=== PATIENT | male | born 1935 | race Caucasian/White ===

== ENCOUNTER 2019-07-17 08:41 | Outpatient (CLI) | payer MEDICARE, SELFPAY ==
[2019-07-17 09:08] LABS: Add Urine Microscopic? NO; Appearance Urine Clear (Clear); Bilirubin Urine Negative (Negative); Blood Urine Negative (Negative); Color Urine Yellow (Yellow); Glucose Urine UA Negative (Negative); Ketones Urine Negative (Negative); Leukocyte Esterase Ur Negative (Negative); Nitrate Urine Negative (Negative); Protein Urine Negative (Negative); Specific Grav Ur >= 1.030 (1.010-1.020); Urobilinogen Urine 0.2 mg/dL (0.2-1.0); pH Urine 5.5 (5.0-8.0)
[2019-07-17 09:10] LABS: Basophils Absolute Auto 0.05 K/mm3 (0.00-0.10); Basophils Percent Auto 0.9 % (0.0-1.0); Eosinophils Absolute Auto 0.44 K/mm3 (0.02-0.50); Eosinophils Percent Auto 7.7 % (1.0-6.0); Hematocrit 41.1 % (37.0-46.0); Hemoglobin 13.9 g/dL (12.4-15.3); Immature Granulocyte Absolute 0.02 K/mm3 (0.00-0.00); Immature Granulocyte Percent A 0.4 % (0.0-0.0); Immature Platelet Fraction Pct 1.4 % (1.0-7.0); Lymphocytes Absolute Auto 1.58 K/mm3 (1.10-4.50); Lymphocytes Percent Auto 27.7 % (18.0-42.0); Mean Corpuscular HGB Conc 33.8 g/dL (32.0-36.0); Mean Corpuscular Hemoglobin 33.2 pg (27.0-31.0); Mean Corpuscular Volume 98.1 fL (78.0-102.0); Mean Platelet Volume 9.8 fl (8.7-11.0); Monocytes Absolute Auto 0.52 K/mm3 (0.10-0.90); Monocytes Percent Auto 9.1 % (2.0-11.0); Neutrophils Absolute Auto 3.1 K/mm3 (1.7-7.2); Neutrophils Percent Auto 54.2 % (50.0-70.0); Platelet Count Result 268 K/mm3 (150-420); Red Blood Count 4.19 M/mm3 (4.70-6.10); Red Cell Distribution Width 13.1 % (11.6-14.4); White Blood Count 5.7 K/mm3 (4.8-10.8)
[2019-07-17 10:02] LABS: Alanine Aminotransferase 29 U/L (16-63); Albumin Level 3.7 g/dL (3.4-5.0); Alkaline Phosphatase 101 U/L (46-116); Anion Gap 12.9 mmol/L (7-16); Aspartate Amino Transferase 20 U/L (15-37); Bilirubin,Total 0.4 mg/dL (0.00-1.00); Blood Urea Nitrogen 25 mg/dL (7-18); Carbon Dioxide 28 mmol/L (21-32); Chloride 107 mmol/L (98-108); Cholesterol 176 mg/dL (0-200); Estimated Glomerular Filt Rate > 60; Ferritin 85 ng/mL (26-388); Free T4 Free Thyroxine 1.09 ng/dL (0.76-1.46); Glucose 100 mg/dL (70-99); HDL Direct 28 mg/dL (40-60); Iron 93 ug/dL (65-175); LDL Cholesterol Calculated 115 mg/dL (<130); Osmolality Calculated 302 mOsm/kg (285-295); Percent Iron Saturation 34 % (12-57); Potassium 3.9 mmol/L (3.5-5.1); Sodium 144 mmol/L (136-145); Thyroid Stimulating Hormone 1.25 uIU/mL (0.36-3.74); Total Protein 6.4 g/dL (6.4-8.2); Triglycerides 165 mg/dL (0-150); Uric Acid 6.1 mg/dL (3.5-7.2)
== END 2019-07-17 08:42 | disposition home or self-care (01) ==
LOC: CHSLAB 08:44
PROVIDERS: PCP Internal Medicine; Visit Provider Internal Medicine
DX: E79.0 Hyperuricemia without signs of inflammatory arthritis and tophaceous disease (principal); R73.01 Impaired fasting glucose; I10 Essential (primary) hypertension; E78.2 Mixed hyperlipidemia; E03.4 Atrophy of thyroid (acquired); C61 Malignant neoplasm of prostate; D63.8 Anemia in other chronic diseases classified elsewhere
CPT/HCPCS: 36415; 80053; 80061; 81003; 82728; 83540; 83550; 84439; 84443; 84550; 85025; 85055

== ENCOUNTER 2019-11-21 08:29 | Outpatient (CLI) | payer MEDICARE, SELFPAY ==
--- NOTE | ~2019-11-21 | CT_ITS ---
EXAMINATION: CT abdomen wo/w con DATE: 11/21/2019 09:19 INDICATION: Left renal mass TECHNIQUE: Computed tomography (CT) of the abdomen was performed without and with 100 mL Omnipaque-35 0 intravenous contrast. Automated exposure control and iterative reconstruction technique were employ ed. The dose-length product was 597.37 mGy-cm. COMPARISON: 04/14/2019 FINDINGS: Mild bibasilar atelectasis. Heart size is normal. Atherosclerotic coronary artery calcifications. No pericardial or pleural effusion. Focal hepatic steatosis along the ligamentum teres. Gallbladder, spl een, pancreas and bilateral adrenal glands are normal. Visualized portions of the bowels are unremark able. No pathologically enlarged abdominal lymphadenopathy. There is calcified atherosclerosis of the aorta and many of the other arteries. Severe lumbar and moderate lower thoracic spondylosis. Chronic scarring in the subcutaneous fat at the anterior abdominal wall on either side of the umbilicus. There are couple simple appearing cysts in the right kidney the larger measuring 3.6 similar. Unchang ed thin calcified septation extending across a bilobed 3.7 cm complex left renal cyst without appreci able enhancement cyst with a Bosniak 2 cyst. No interval change in a 9 mm enhancing nodule at the upp er pole of the right kidney. Cortical defect with reticular scarring at the posterior medial mid left kidney consistent with prior partial nephrectomy or ablation of a reported renal mass. No evident en hancing nodular soft tissue component to suggest recurrent disease. There are couple 4 mm and 2 mm lo w-density lesions evident in the left kidney on the postcontrast images is likely renal cysts but too small to really characterize. 2 mm nonobstructing stones are seen at the upper pole of the right kid yany and lower pole of the left kidney. No hydronephrosis. IMPRESSION: 1. Focal parenchymal defect with scarring at the mid left kidney consistent with prior partial nephre ctomy or ablation with no evident recurrent disease. 2. Unchanged 9 mm enhancing nodule at the upper pole of the right kidney concerning for renal cell ca rcinoma. 3. Nonobstructing bilateral nephrolithiasis. Reviewed, dictated and finalized at location A. IMPRESSION: 1. Focal parenchymal defect with scarring at the mid left kidney consistent wit h prior partial nephrectomy or ablation with no evident recurrent disease. 2. Unchanged 9 mm enhancing nodule at the upper pole of the right kidney concer tonya for renal cell carcinoma. 3. Nonobstructing bilateral nephrolithiasis.
[2019-11-21 09:11] LABS: Estimated Glomerular Filt Rate > 60
== END 2019-11-21 08:30 | disposition home or self-care (01) ==
PROVIDERS: PCP Internal Medicine
DX: N28.89 Other specified disorders of kidney and ureter (principal); N20.0 Calculus of kidney
CPT/HCPCS: 36415; 74170; Q9967

== ENCOUNTER 2020-01-18 08:15 | Outpatient (CLI) | payer MEDICARE, SELFPAY ==
[2020-01-18 08:41] LABS: Add Urine Microscopic? YES; Appearance Urine Clear (Clear); Bilirubin Urine Negative (Negative); Blood Urine Negative (Negative); Color Urine Yellow (Yellow); Glucose Urine UA Negative (Negative); Ketones Urine Negative (Negative); Leukocyte Esterase Ur Trace (Negative); Nitrate Urine Negative (Negative); Protein Urine Negative (Negative); Specific Grav Ur >= 1.030 (1.010-1.020); Urobilinogen Urine 0.2 mg/dL (0.2-1.0)
[2020-01-18 08:46] LABS: Bacteria Urine Trace /hpf; RBC Urine 0-2 /hpf (0-2); Squamous Epithelial Cell Urine Few /hpf (Few)
[2020-01-18 08:55] LABS: Hemoglobin A1C 5.1 % (<5.7)
[2020-01-18 09:46] LABS: Alanine Aminotransferase 59 U/L (16-63); Albumin Level 3.6 g/dL (3.4-5.0); Alkaline Phosphatase 92 U/L (46-116); Anion Gap 9 mmol/L (8-16); Aspartate Amino Transferase 22 U/L (15-37); Bilirubin,Total 0.3 mg/dL (0.00-1.00); Blood Urea Nitrogen 33 mg/dL (7-18); Calcium 8.6 mg/dL (8.5-10.1); Carbon Dioxide 29 mmol/L (21-32); Chloride 107 mmol/L (98-108); Cholesterol 191 mg/dL (0-200); Estimated Glomerular Filt Rate > 60; Glucose 88 mg/dL (70-99); HDL Direct 31 mg/dL (40-60); LDL Cholesterol Calculated 137 mg/dL (<130); Osmolality Calculated 306 mOsm/kg (285-295); Potassium 3.7 mmol/L (3.5-5.1); Sodium 145 mmol/L (136-145); Total Protein 6.3 g/dL (6.4-8.2); Triglycerides 117 mg/dL (0-150)
== END 2020-01-18 08:16 | disposition home or self-care (01) ==
LOC: CHSLAB 08:16
PROVIDERS: PCP Internal Medicine; Visit Provider Internal Medicine
DX: E78.2 Mixed hyperlipidemia (principal); I10 Essential (primary) hypertension; R73.01 Impaired fasting glucose
CPT/HCPCS: 36415; 80053; 80061; 81001; 83036

== ENCOUNTER 2020-05-31 08:38 | Outpatient (CLI) | payer MEDICARE, SELFPAY ==
--- NOTE | ~2020-05-31 | CT_ITS ---
EXAMINATION: CT abdomen wo/w con DATE: 05/31/2020 09:38 INDICATION: Malignant left neoplasm restaging TECHNIQUE: Computed tomography (CT) of the abdomen was performed without and subsequently with 100 cc Omnipaque 350 intravenous contrast. Automated exposure control and iterative reconstruction techniqu e were employed. Exam dose: 580.25 mGy-cm total exam DLP. COMPARISON: 11/21/2019, 04/14/2019, 08/31/2018 CT abdomen examinations FINDINGS: Stable bilateral renal cysts. No interval new or enlarging renal mass lesion. Stable postablation changes of the left kidney at site of former renal mass. No interval change at th is site. Diffuse hepatic steatosis. No hepatic space-occupying mass lesion. The gallbladder is present and slime ears unremarkable. No pericholecystic fluid or fat stranding. No bile duct or pancreatic duct dilatat ion. No pancreatic mass lesion or calcification. Normal splenic size. Normal morphology of the adrenal glands. Atherosclerotic calcification of the abdominal aorta; no abdominal aortic aneurysm. No intraperitonea l or retroperitoneal mass lesion or adenopathy or ascites. No bowel obstruction, bowel wall thickening, pneumatosis or intraperitoneal free air. Included skeletal structures are unremarkable other than degenerative change of the thoracic and part icularly lumbar spine. IMPRESSION: Stable postablation changes at the medial mid left kidney and stable bilateral renal cys ts; no significant change since 11/21/2019 Reviewed, dictated and finalized at [facility]. Reviewed, dictated and finalized at location B. GER DRUG IMPRESSION: Stable postablation changes at the medial mid left kidney and stab le bilateral renal cysts; no significant change since 11/21/2019
[2020-05-31 09:29] LABS: Estimated Glomerular Filt Rate > 60
== END 2020-05-31 08:39 | disposition home or self-care (01) ==
PROVIDERS: PCP Internal Medicine; Visit Provider Urology
DX: C64.2 Malignant neoplasm of left kidney, except renal pelvis (principal)
CPT/HCPCS: 74170; Q9967

== ENCOUNTER 2020-07-29 08:30 | Outpatient (CLI) | payer MEDICARE, SELFPAY ==
[2020-07-29 08:45] LABS: Basophils Absolute Auto 0.05 K/mm3 (0.00-0.10); Basophils Percent Auto 0.9 % (0.0-1.0); Eosinophils Absolute Auto 0.21 K/mm3 (0.02-0.50); Eosinophils Percent Auto 3.7 % (1.0-6.0); Hemoglobin 13.2 g/dL (12.4-15.3); Immature Granulocyte Absolute 0.01 K/mm3 (0.00-0.00); Immature Granulocyte Percent A 0.2 % (0.0-0.0); Lymphocytes Absolute Auto 1.76 K/mm3 (1.10-4.50); Lymphocytes Percent Auto 31.1 % (18.0-42.0); Mean Corpuscular HGB Conc 33.8 g/dL (32.0-36.0); Mean Corpuscular Hemoglobin 33.1 pg (27.0-31.0); Mean Corpuscular Volume 97.7 fL (78.0-102.0); Mean Platelet Volume 9.4 fl (8.7-11.0); Monocytes Absolute Auto 0.59 K/mm3 (0.10-0.90); Monocytes Percent Auto 10.4 % (2.0-11.0); Neutrophils Percent Auto 53.7 % (50.0-70.0); Platelet Count Result 232 K/mm3 (150-420); Red Blood Count 3.99 M/mm3 (4.70-6.10); Red Cell Distribution Width 12.6 % (11.6-14.4); White Blood Count 5.7 K/mm3 (4.8-10.8)
[2020-07-29 08:57] LABS: Add Urine Microscopic? NO; Appearance Urine Clear (Clear); Bilirubin Urine Negative (Negative); Blood Urine Negative (Negative); Color Urine Yellow (Yellow); Glucose Urine UA Negative (Negative); Ketones Urine Negative (Negative); Leukocyte Esterase Ur Negative (Negative); Nitrate Urine Negative (Negative); Protein Urine Negative (Negative); Specific Grav Ur >= 1.030 (1.010-1.020); Urobilinogen Urine 0.2 mg/dL (0.2-1.0); pH Urine 5.5 (5.0-8.0)
[2020-07-29 09:41] LABS: Hemoglobin A1C 5.6 % (<5.7)
[2020-07-29 10:04] LABS: Alanine Aminotransferase 51 U/L (16-63); Albumin Level 3.6 g/dL (3.4-5.0); Alkaline Phosphatase 102 U/L (46-116); Anion Gap 10 mmol/L (8-16); Aspartate Amino Transferase 27 U/L (15-37); Bilirubin,Total 0.6 mg/dL (0.00-1.00); Blood Urea Nitrogen 27 mg/dL (7-18); Calcium 8.9 mg/dL (8.5-10.1); Carbon Dioxide 27 mmol/L (21-32); Chloride 106 mmol/L (98-108); Cholesterol 187 mg/dL (0-200); Creatine Kinase 89 U/L (39-308); Estimated Glomerular Filt Rate 60; Glucose 105 mg/dL (70-99); HDL Direct 24 mg/dL (40-60); LDL Cholesterol Calculated 123 mg/dL (<130); Osmolality Calculated 301 mOsm/kg (285-295); Sodium 143 mmol/L (136-145); Total Protein 6.3 g/dL (6.4-8.2); Triglycerides 198 mg/dL (0-150); Uric Acid 6.3 mg/dL (3.5-7.2)
== END 2020-07-29 08:31 | disposition home or self-care (01) ==
LOC: CHSLAB 08:32
PROVIDERS: PCP Internal Medicine; Visit Provider Internal Medicine
DX: E78.2 Mixed hyperlipidemia (principal); I10 Essential (primary) hypertension; R73.01 Impaired fasting glucose; E79.0 Hyperuricemia without signs of inflammatory arthritis and tophaceous disease; N30.00 Acute cystitis without hematuria
CPT/HCPCS: 36415; 80053; 80061; 81003; 82550; 83036; 84550; 85025; 87077; 87086; 87088; 87186

== ENCOUNTER 2021-01-16 10:41 | Outpatient (CLI) | payer MEDICARE, SELFPAY ==
[2021-01-16 12:02] LABS: SARS-CoV-2 RNA PCR Negative (Negative)
== END 2021-01-16 10:42 | disposition home or self-care (01) ==
LOC: CHSLAB 10:43
PROVIDERS: PCP Internal Medicine; Visit Provider Internal Medicine
DX: J06.9 Acute upper respiratory infection, unspecified (principal); Z20.822 Contact with and (suspected) exposure to COVID-19
CPT/HCPCS: C9803; U0003; U0005

== ENCOUNTER 2021-02-11 09:04 | Outpatient (CLI) | payer MEDICARE, SELFPAY ==
[2021-02-11 09:23] LABS: Add Urine Microscopic? NO; Appearance Urine Clear (Clear); Bilirubin Urine Negative (Negative); Blood Urine Negative (Negative); Color Urine Yellow (Yellow); Glucose Urine UA Negative (Negative); Ketones Urine Negative (Negative); Leukocyte Esterase Ur Negative (Negative); Nitrate Urine Negative (Negative); Protein Urine Negative (Negative); Specific Grav Ur >= 1.030 (1.010-1.020); Urobilinogen Urine 0.2 mg/dL (0.2-1.0); pH Urine 5.5 (5.0-8.0)
[2021-02-11 09:24] LABS: Basophils Absolute Auto 0.04 K/mm3 (0.00-0.10); Basophils Percent Auto 0.8 % (0.0-1.0); Eosinophils Absolute Auto 0.28 K/mm3 (0.02-0.50); Eosinophils Percent Auto 5.6 % (1.0-6.0); Hematocrit 40.7 % (37.0-46.0); Hemoglobin 14.1 g/dL (12.4-15.3); Immature Granulocyte Absolute 0.01 K/mm3 (0.00-0.00); Immature Granulocyte Percent A 0.2 % (0.0-0.0); Lymphocytes Absolute Auto 1.51 K/mm3 (1.10-4.50); Lymphocytes Percent Auto 30.1 % (18.0-42.0); Mean Corpuscular HGB Conc 34.6 g/dL (32.0-36.0); Mean Corpuscular Hemoglobin 34.3 pg (27.0-31.0); Monocytes Absolute Auto 0.44 K/mm3 (0.10-0.90); Monocytes Percent Auto 8.8 % (2.0-11.0); Neutrophils Absolute Auto 2.7 K/mm3 (1.7-7.2); Neutrophils Percent Auto 54.5 % (50.0-70.0); Platelet Count Result 280 K/mm3 (150-420); Red Blood Count 4.11 M/mm3 (4.70-6.10); Red Cell Distribution Width 12.4 % (11.6-14.4)
[2021-02-11 09:35] LABS: Hemoglobin A1C 5.7 % (<5.7)
[2021-02-11 09:59] LABS: Alanine Aminotransferase 55 U/L (16-63); Albumin Level 3.8 g/dL (3.4-5.0); Alkaline Phosphatase 115 U/L (46-116); Anion Gap 10 mmol/L (8-16); Aspartate Amino Transferase 30 U/L (15-37); Bilirubin,Total 0.3 mg/dL (0.00-1.00); Blood Urea Nitrogen 21 mg/dL (7-18); Calcium 8.9 mg/dL (8.5-10.1); Carbon Dioxide 29 mmol/L (21-32); Chloride 106 mmol/L (98-108); Cholesterol 185 mg/dL (0-200); Estimated Glomerular Filt Rate > 60; Glucose 102 mg/dL (70-99); HDL Direct 26 mg/dL (40-60); LDL Cholesterol Calculated 122 mg/dL (<130); Osmolality Calculated 303 mOsm/kg (285-295); Potassium 4.2 mmol/L (3.5-5.1); Sodium 145 mmol/L (136-145); Total Protein 6.9 g/dL (6.4-8.2); Triglycerides 185 mg/dL (0-150)
== END 2021-02-11 09:05 | disposition home or self-care (01) ==
LOC: CHSLAB 09:05
PROVIDERS: PCP Internal Medicine; Visit Provider Internal Medicine
DX: R73.01 Impaired fasting glucose (principal); E78.2 Mixed hyperlipidemia; I10 Essential (primary) hypertension; C61 Malignant neoplasm of prostate
CPT/HCPCS: 36415; 80053; 80061; 81003; 83036; 85025

== ENCOUNTER 2021-06-13 08:35 | Outpatient (CLI) | payer MEDICARE, SELFPAY ==
--- NOTE | ~2021-06-13 | CT_ITS ---
EXAMINATION: CT abdomen wo/w con DATE: 06/13/2021 09:14 INDICATION: Malignant neoplasm of the left kidney TECHNIQUE: Computed tomography (CT) of the abdomen was performed without and with 100 cc Omnipaque 35 0 intravenous contrast. The dose-length product was 683.81 mGy-cm. Automated exposure control and ite rative reconstruction technique were employed. COMPARISON: CT dated 05/31/2020. FINDINGS: Lung bases are unremarkable. No significant pleural or pericardial effusion. There are stab le radioablation changes medial aspect of the left kidney. There are stable bilateral renal cysts. Ga llbladder is present. Fatty infiltration of the liver. The spleen, pancreas, adrenal glands are unremarkable. There is athe rosclerosis of the aorta and coronary arteries. No free air or free fluid. There are changes of ventr al abdominal wall hernia repair. No free air or free fluid. Stable hypodensity upper pole of the righ t kidney. IMPRESSION: 1. Stable changes medial aspect of the left kidney, likely related to previous partial nephrectomy or ablation. No evidence for recurrent malignancy. Reviewed, dictated and finalized at location A. ENT SUPPORT SERVICES DIRECTOR
[2021-06-13 10:03] LABS: Estimated Glomerular Filt Rate > 60
== END 2021-06-13 08:36 | disposition home or self-care (01) ==
PROVIDERS: PCP Internal Medicine; Visit Provider Urology
DX: C64.2 Malignant neoplasm of left kidney, except renal pelvis (principal)
CPT/HCPCS: 74170; Q9967

== ENCOUNTER 2021-09-02 09:18 | Outpatient (CLI) | payer MEDICARE, SELFPAY ==
[2021-09-02 10:01] LABS: Basophils Absolute Auto 0.04 K/mm3 (0.00-0.10); Basophils Percent Auto 0.8 % (0.0-1.0); Eosinophils Percent Auto 4.1 % (1.0-6.0); Hematocrit 37.7 % (37.0-46.0); Hemoglobin 12.8 g/dL (12.4-15.3); Immature Granulocyte Absolute 0.01 K/mm3 (0.00-0.00); Immature Granulocyte Percent A 0.2 % (0.0-0.0); Lymphocytes Absolute Auto 1.62 K/mm3 (1.10-4.50); Lymphocytes Percent Auto 32.9 % (18.0-42.0); Mean Corpuscular Hemoglobin 33.9 pg (27.0-31.0); Mean Corpuscular Volume 99.7 fL (78.0-102.0); Mean Platelet Volume 9.9 fl (8.7-11.0); Monocytes Absolute Auto 0.41 K/mm3 (0.10-0.90); Monocytes Percent Auto 8.3 % (2.0-11.0); Neutrophils Absolute Auto 2.7 K/mm3 (1.7-7.2); Neutrophils Percent Auto 53.7 % (50.0-70.0); Platelet Count Result 293 K/mm3 (150-420); Red Blood Count 3.78 M/mm3 (4.70-6.10); Red Cell Distribution Width 12.7 % (11.6-14.4); White Blood Count 4.9 K/mm3 (4.8-10.8)
[2021-09-02 10:11] LABS: Add Urine Microscopic? NO; Appearance Urine Clear (Clear); Bilirubin Urine Negative (Negative); Blood Urine Negative (Negative); Color Urine Yellow (Yellow); Glucose Urine UA Negative (Negative); Ketones Urine Negative (Negative); Leukocyte Esterase Ur Negative (Negative); Nitrate Urine Negative (Negative); Protein Urine Negative (Negative); Specific Grav Ur >= 1.030 (1.010-1.020); Urobilinogen Urine 0.2 mg/dL (0.2-1.0); pH Urine 5.5 (5.0-8.0)
[2021-09-02 10:20] LABS: Hemoglobin A1C 5.9 % (<5.7)
[2021-09-02 10:38] LABS: Alanine Aminotransferase 26 U/L (16-63); Albumin Level 3.5 g/dL (3.4-5.0); Alkaline Phosphatase 119 U/L (46-116); Anion Gap 8 mmol/L (8-16); Aspartate Amino Transferase 22 U/L (15-37); Bilirubin,Total 0.4 mg/dL (0.00-1.00); Blood Urea Nitrogen 22 mg/dL (7-18); Calcium 8.8 mg/dL (8.5-10.1); Carbon Dioxide 28 mmol/L (21-32); Chloride 107 mmol/L (98-108); Cholesterol 167 mg/dL (0-200); Creatine Kinase 73 U/L (39-308); Estimated Glomerular Filt Rate > 60; Glucose 97 mg/dL (70-99); HDL Direct 26 mg/dL (40-60); LDL Cholesterol Calculated 112 mg/dL (<130); Osmolality Calculated 299 mOsm/kg (285-295); Potassium 4.2 mmol/L (3.5-5.1); Sodium 143 mmol/L (136-145); Total Protein 6.5 g/dL (6.4-8.2); Triglycerides 146 mg/dL (0-150)
== END 2021-09-02 09:19 | disposition home or self-care (01) ==
LOC: CHSLAB 09:20
PROVIDERS: PCP Internal Medicine; Visit Provider Internal Medicine
DX: I10 Essential (primary) hypertension (principal); E78.2 Mixed hyperlipidemia; R73.01 Impaired fasting glucose; C61 Malignant neoplasm of prostate
CPT/HCPCS: 36415; 80053; 80061; 81003; 82550; 83036; 85025

== ENCOUNTER 2021-09-19 11:52 | Emergency (ER) | payer MEDICARE, SELFPAY ==
--- NOTE | ~2021-09-19 | CT_ITS ---
EXAMINATION: CT abdomen pelvis wo con DATE: 09/19/2021 13:20 INDICATION: Gross hematuria. TECHNIQUE: Computed tomography (CT) of the abdomen and pelvis was performed without intravenous contr ast. Automated exposure control and iterative reconstruction technique were employed. The dose-length product was 212.89 mGy-cm. COMPARISON: CT abdomen 06/13/2021, CT abdomen and pelvis 11/24/17 FINDINGS: The visualized portions of the lung bases demonstrate mild atelectasis. There is mild bronc hiectasis bilaterally. There is a pneumatocele in left lower lobe. No pleural effusion. No heart size is normal. There are coronary artery calcifications. No pericardial effusion. There is diffuse hepat ic steatosis. The gallbladder, spleen, pancreas, and adrenal glands are normal. There are cysts in ri ght kidney measuring up to 3.8 cm. One of the cysts demonstrate a chronic thick calcification of a se ptum. There is a 3.9 cm cyst in left kidney. There are chronic changes of either ablation or partial nephrectomy at posterior medial aspect of left kidney. There is a 3 mm stone in left kidney. There ar e brachytherapy seeds in the prostate. There is diverticulosis of the colon without evidence of diver ticulitis. There are no dilated loops of bowel. The appendix is normal. There are no pathologically e nlarged lymph nodes. There is no free intraperitoneal fluid. There is lumbar levoscoliosis and severe spondylosis. There is a chronic cord lesion in left superior pubic ramus, and benign. IMPRESSION: 1. No specific etiology for hematuria. Reviewed, dictated and finalized at location A.
[2021-09-19 12:00] VITALS: BP 157/87; PULSE 51; RESP 20; TEMP 36.6; O2SAT 96
--- NOTE | 2021-09-19 12:45 | ED.GENADULT ---
HPI - General Adult General Chief complaint: Urogenital-Male Stated complaint: diarrhea, blood in urine History of Present Illness HPI narrative: Fritz is a very pleasant 85M with a PMH of prostate cancer s/p treatment and HTN that came to the ED with a few episodes of diarrhea and gross hematuria. It started this morning and he has had a few episodes. There is no dysuria, fevers, chills, N/V CP or SOB. He has had nephrolithiasis in the past. Related Data Allergies Allergy/AdvReac Type Severity Reaction Status Date / Time No Known Allergies Allergy Unverified 07/11/18 11:46 Review of Systems Constitutional: Constitutional: Reports no additional constitutional complaints Eyes: Eyes: Reports no additional eye complaints ENT: Reports system reviewed and no additional complaints, except as documented Cardiovascular: Cardiovascular: Reports no additional cardiovascular complaints Respiratory: Respiratory: Reports no additional respiratory complaints Gastrointestinal: Gastrointestinal: Reports no additional gastrointestinal complaints Genitourinary: Genitourinary: Reports no additional male genitourinary complaints Musculoskeletal: Musculoskeletal: Reports no additional musculoskeletal complaints Integumentary/Breasts: Skin/Breast: Reports system reviewed and no additional complaints, except as docu Neurologic: Reports system reviewed and no additional complaints, except as documented Psychiatric: Psychiatric: Reports no additional psychiatric complaints Endocrine: Endocrine: Reports no additional endocrine complaints Hematologic/Lymphatic: Hematologic/Lymphatic: Reports no additional hematologic/lymphatic complaints Allergic/Immunologic: Allergic/Immunologic: Reports no additional allergic/immunologic complaints [facility] Social History Social History Smoking status: Never smoker Exam Const: General: healthy appearing, no acute distress and alert HENMT: Head: normal to inspection Ears: external ears normal General nose exam: Normal external nose present Face and sinus: normal facial exam Eyes: Conjunctivae: conjunctivae normal Pupils: Equal, round and reactive pupils present EOM: EOMs intact bilaterally Neck: Neck: normal visual inspection Chest: Chest palpation & inspection: normal inspection of the chest Resp: Effort & Inspection: normal respiratory effort Auscultation: clear to auscultation bilaterally Cardio: Rate: regular rate GI: Other: NO TTP, no guarding, normal bowel sounds : Other: No CVA tenderness, no suprapubic tenderness Skin: General skin exam: normal color Neuro: General: patient oriented x3 and moves all extremities Speech: normal speech Extrem: General: normal to inspection Psych: Mental Status: mental status grossly normal Affect: normal affect Course Course Emergency Course: Ordered labs and CT EXAMINATION: CT abdomen pelvis wo con DATE: 09/19/2021 13:20 INDICATION: Gross hematuria. TECHNIQUE: Computed tomography (CT) of the abdomen and pelvis was performed without intravenous contrast. Automated exposure control and iterative reconstruction technique were employed. The dose-length product was 212.89 mGy-cm. COMPARISON: CT abdomen 06/13/2021, CT abdomen and pelvis 11/24/17 FINDINGS: The visualized portions of the lung bases demonstrate mild atelectasis. There is mild bronchiectasis bilaterally. There is a pneumatocele in left lower lobe. No pleural effusion. No heart size is normal. There are coronary artery calcifications. No pericardial effusion. There is diffuse hepatic steatosis. The gallbladder, spleen, pancreas, and adrenal glands are normal. There are cysts in right kidney measuring up to 3.8 cm. One of the cysts demonstrate a chronic thick calcification of a septum. There is a 3.9 cm cyst in left kidney. There are chronic changes of either ablation or partial nephrectomy at posterior medial aspect of le
[2021-09-19 13:00] LABS: Add Urine Microscopic? YES; Appearance Urine Turbid (Clear); Basophils Absolute Auto 0.03 K/mm3 (0.00-0.10); Basophils Percent Auto 0.4 % (0.0-1.0); Bilirubin Urine Negative (Negative); Blood Urine 3+ (Negative); Color Urine Brown (Yellow); Eosinophils Absolute Auto 0.23 K/mm3 (0.02-0.50); Eosinophils Percent Auto 2.8 % (1.0-6.0); Glucose Urine UA Trace (Negative); Hemoglobin 12.8 g/dL (12.4-15.3); Immature Granulocyte Absolute 0.02 K/mm3 (0.00-0.00); Immature Granulocyte Percent A 0.2 % (0.0-0.0); Ketones Urine Trace (Negative); Leukocyte Esterase Ur 1+ (Negative); Lymphocytes Absolute Auto 1.26 K/mm3 (1.10-4.50); Lymphocytes Percent Auto 15.1 % (18.0-42.0); Mean Corpuscular HGB Conc 33.7 g/dL (32.0-36.0); Mean Corpuscular Hemoglobin 33.3 pg (27.0-31.0); Mean Platelet Volume 9.7 fl (8.7-11.0); Monocytes Absolute Auto 0.75 K/mm3 (0.10-0.90); Neutrophils Absolute Auto 6.1 K/mm3 (1.7-7.2); Neutrophils Percent Auto 72.5 % (50.0-70.0); Nitrate Urine Positive (Negative); Platelet Count Result 233 K/mm3 (150-420); Protein Urine 2+ (Negative); Red Blood Count 3.84 M/mm3 (4.70-6.10); Red Cell Distribution Width 12.8 % (11.6-14.4); Specific Grav Ur 1.025 (1.010-1.020); Urobilinogen Urine 0.2 mg/dL (0.2-1.0); White Blood Count 8.4 K/mm3 (4.8-10.8)
[2021-09-19 13:03] LABS: RBC Urine >75 /hpf (0-2); Squamous Epithelial Cell Urine Rare /hpf (Few)
[2021-09-19 13:04] LABS: Bacteria Urine 1+ /hpf
[2021-09-19 13:15] LABS: Alanine Aminotransferase 36 U/L (16-63); Albumin Level 3.5 g/dL (3.4-5.0); Alkaline Phosphatase 115 U/L (46-116); Anion Gap 7 mmol/L (8-16); Aspartate Amino Transferase 24 U/L (15-37); Bilirubin,Total 0.4 mg/dL (0.00-1.00); Blood Urea Nitrogen 22 mg/dL (7-18); CRP < 0.5 mg/dL (0.0-0.9); Calcium 8.8 mg/dL (8.5-10.1); Carbon Dioxide 28 mmol/L (21-32); Chloride 108 mmol/L (98-108); Estimated Glomerular Filt Rate > 60; Glucose 108 mg/dL (70-99); Osmolality Calculated 300 mOsm/kg (285-295); Potassium 3.6 mmol/L (3.5-5.1); Sodium 143 mmol/L (136-145); Total Protein 6.8 g/dL (6.4-8.2)
[2021-09-19] MEDS: cefTRIAXone 1 GM, LIDOCAINE HCL 1% LOCAL INJ 2.1 ML IM (14:15)
[2021-09-19 14:30] VITALS: BP 157/87; PULSE 51; RESP 20; TEMP 36.9; O2SAT 97
== END 2021-09-19 14:40 | disposition home or self-care (01) ==
PROVIDERS: Emergency Provider Family Medicine; PCP Internal Medicine
DX: N39.0 Urinary tract infection, site not specified (principal); Z85.46 Personal history of malignant neoplasm of prostate; I10 Essential (primary) hypertension
CPT/HCPCS: 36415; 74176; 80053; 81001; 85025; 86140; 86850; 86900; 86901; 96372; 99284; J0696

== ENCOUNTER 2021-11-01 09:29 | Outpatient (CLI) | payer MEDICARE, SELFPAY ==
[2021-11-01 09:43] LABS: Basophils Absolute Auto 0.04 K/mm3 (0.00-0.10); Basophils Percent Auto 0.7 % (0.0-1.0); Eosinophils Absolute Auto 0.21 K/mm3 (0.02-0.50); Eosinophils Percent Auto 3.8 % (1.0-6.0); Immature Granulocyte Absolute 0.01 K/mm3 (0.00-0.00); Immature Granulocyte Percent A 0.2 % (0.0-0.0); Lymphocytes Absolute Auto 1.83 K/mm3 (1.10-4.50); Lymphocytes Percent Auto 33.1 % (18.0-42.0); Mean Corpuscular HGB Conc 33.3 g/dL (32.0-36.0); Mean Platelet Volume 9.5 fl (8.7-11.0); Monocytes Absolute Auto 0.47 K/mm3 (0.10-0.90); Monocytes Percent Auto 8.5 % (2.0-11.0); Neutrophils Percent Auto 53.7 % (50.0-70.0); Platelet Count Result 239 K/mm3 (150-420); Red Blood Count 3.94 M/mm3 (4.70-6.10); Red Cell Distribution Width 12.7 % (11.6-14.4); White Blood Count 5.5 K/mm3 (4.8-10.8)
== END 2021-11-01 09:30 | disposition home or self-care (01) ==
LOC: CHSLAB 09:31
PROVIDERS: PCP Internal Medicine; Visit Provider Internal Medicine
DX: D64.0 Hereditary sideroblastic anemia (principal)
CPT/HCPCS: 36415; 85025

== ENCOUNTER 2022-01-12 16:31 | Emergency (ER) | payer MEDICARE, SELFPAY ==
[2022-01-12 16:45] VITALS: BP 142/82; PULSE 79; RESP 20; TEMP 36.1; O2SAT 98
--- NOTE | 2022-01-12 16:47 | ED.ABDPAIN ---
HPI - Abdominal Pain General Chief Complaint: Urogenital-Male Stated Complaint: trouble urinating Time Seen by Provider: 01/12/22 16:41 History of Present Illness HPI narrative: Pt says he has not been able to void since 0200 last night. Pt has some soreness to the tip of his penis but not sure if that is the problem. Pt takes meds for BPH. Pt denies nausea or vomiting. Related Data Home Medications Medication Instructions Recorded Confirmed lisinopril 40 mg tablet 40 mg DAILY 01/12/22 01/12/22 tamsulosin 0.4 mg capsule 0.4 mg PO DAILY 01/12/22 01/12/22 verapamil 240 mg tablet,extended 240 mg PO DAILY 01/12/22 01/12/22 release Allergies Allergy/AdvReac Type Severity Reaction Status Date / Time No Known Allergies Allergy Unverified 01/12/22 16:47 Review of Systems Review of Systems: All systems reviewed & are unremarkable except as noted in HPI and below [facility] Social History Social History Smoking status: Never smoker Exam Const: General: healthy appearing Nutritional Appearance: well nourished Orientation/consciousness: patient oriented x3 Limitations: no limitations Resp: Effort & Inspection: normal respiratory effort Auscultation: clear to auscultation bilaterally Cardio: Rate: regular rate Rhythm: regular rhythm GI: GI Palp: Yes Soft to palpation and Yes Tenderness to palpation present (GI) (mild suprpubic tenderness) Auscultation: normal bowel sounds : Male General Exam: Yes normal external exam Penis: Yes normal penis and Yes uncircumcised Scrotum: scrotum normal Testes: Testes normal Skin: General skin exam: normal color Rashes: no rashes Wounds: no wounds Neuro: General: patient oriented x3, moves all extremities and no meningeal signs Cranial nerves: Yes Nystagmus not present Speech: normal speech Extrem: General: normal to inspection and no clubbing, cyanosis or edema Psych: Mental Status: mental status grossly normal Affect: normal affect Attitude: cooperative Course Vital Signs Vital signs: Vital Signs Temperature 97 F L 01/12/22 16:45 Pulse Rate 79 01/12/22 16:45 Respiratory Rate 20 01/12/22 16:45 Blood Pressure 142/82 H 01/12/22 16:45 Pulse Oximetry 98 01/12/22 16:45 Oxygen Delivery Room Air 01/12/22 16:45 Temperature 97 F L 01/12/22 16:48 Pulse Rate 79 01/12/22 16:48 Respiratory Rate 20 01/12/22 16:48 Blood Pressure 142/82 H 01/12/22 16:48 Pulse Oximetry 98 01/12/22 16:48 Oxygen Delivery Room Air 01/12/22 16:48 MDM - Abdominal Pain Lab Data Labs: Lab Results 01/12/22 Range/Units 17:00 Urine Color Yellow (Yellow) Urine Appearance Clear (Clear) Urine pH 6.0 (5.0-8.0) Ur Specific Prosperity 1.025 H (1.010-1.020) Urine Protein Negative (Negative) Urine Glucose (UA) Negative (Negative) Urine Ketones Negative (Negative) Ur Blood (Man) Negative (Negative) Urine Nitrate Negative (Negative) Urine Bilirubin Negative (Negative) Urine Urobilinogen 0.2 (0.2-1.0) mg/dL Leukocyte Esterase Rfl Trace (Negative) CURRY/UL Urine RBC None seen (0-2) /hpf Urine WBC 4-6 H (0-3) /hpf Ur Squamous Epith Cells Rare (Few) /hpf Urine Bacteria Trace (None) /hpf Discharge Plan Discharge Clinical Impression: Urinary tract infection Patient Disposition: Home, Self-Care Condition: Improved Instructions: Antibiotic Form, Urinary Tract Infection in Men (ED) Prescriptions: New cefuroxime axetil 500 mg tablet 500 mg PO BID Qty: 10 0RF No Action tamsulosin 0.4 mg capsule 0.4 mg PO DAILY verapamil 240 mg tablet extended release 240 mg PO DAILY lisinopril 40 mg tablet 40 mg DAILY Follow-up/Referrals: Jeanmarie Romero MD [Primary Care Provider] -
[2022-01-12 16:48] VITALS: BP 142/82; PULSE 79; RESP 20; TEMP 36.1; O2SAT 98
[2022-01-12 17:22] LABS: Add Urine Microscopic? YES; Appearance Urine Clear (Clear); Bilirubin Urine Negative (Negative); Blood Urine Negative (Negative); Color Urine Yellow (Yellow); Glucose Urine UA Negative (Negative); Ketones Urine Negative (Negative); Leukocyte Esterase Ur Trace LEU/UL (Negative); Nitrate Urine Negative (Negative); Protein Urine Negative (Negative); Specific Grav Ur 1.025 (1.010-1.020); Urobilinogen Urine 0.2 mg/dL (0.2-1.0)
--- NOTE | 2022-01-12 17:26 | PC.NURSE ---
Pt was incontinent of a large amount of urine in his depends. Pt able to provide a small sample in urinal for UA. Pt reports pain has improved and stated to ERP that penis is no longer swollen or painful.
[2022-01-12 17:28] LABS: Bacteria Urine Trace /hpf; RBC Urine None seen /hpf (0-2); Squamous Epithelial Cell Urine Rare /hpf (Few)
--- NOTE | 2022-01-12 18:07 | PC.NURSE ---
Ceftin not stocked in ER pyxis. Anne on 2nd floor will pull medication from their pyxis. Pt updated about delays.
[2022-01-12] MEDS: CEFUROXIME AXETIL 250 MG TABLET 500 MG PO (18:12)
== END 2022-01-12 18:17 | disposition home or self-care (01) ==
PROVIDERS: Emergency Provider Emergency Medicine; PCP Internal Medicine
DX: N39.0 Urinary tract infection, site not specified (principal)
CPT/HCPCS: 81001; 99283; A9270

== ENCOUNTER 2022-06-05 08:08 | Outpatient (CLI) | payer MEDICARE, SELFPAY ==
--- NOTE | ~2022-06-05 | CT_ITS ---
EXAMINATION: CT abdomen wo/w con DATE: 06/05/2022 08:49 INDICATION: Malignant neoplasm of the left kidney except renal pelvis. TECHNIQUE: Computed tomography (CT) of the abdomen and pelvis was performed without and with 100 mL O mnipaque-350 intravenous contrast. Automated exposure control and iterative reconstruction technique were employed. The dose-length product was 742.03 mGy-cm. COMPARISON: 09/19/2021 FINDINGS: Mild discoid atelectasis in the bilateral lower lobes. No pleural effusion. Small pneumatocele in the left lower lobe. Heart size is normal. Atherosclerotic coronary artery calcification. No pericardial effusion. Liver, gallbladder, spleen, pancreas and bilateral adrenal glands are normal. No significa nt interval change in multiple bilateral renal cysts, the largest in the left kidney measuring 4.5 cm . This includes unchanged unchanged 3.7 cm Bosniak 2 exophytic cyst at the right kidney with a thin p artially calcified internal septation which is discernible only were calcified. No enhancing soft tis steffi component. Small region of cortical scarring with adjacent stranding at the posterior medial left kidney likely representing the site of a prior partial nephrectomy or cryoablation reportedly for ma lignant renal neoplasm. No evident residual or locally recurrent disease. There are few scattered col onic diverticula without adjacent inflammatory stranding. Visualized portion of the small bowel are n ormal with no obstruction. No pathologically enlarged abdominal lymphadenopathy. Mild lumbar levoscol iosis with severe spondylosis. IMPRESSION: 1. No interval change in a 3.7 cm Bosniak 2 right renal cyst or several additional bilateral simple c ysts. 2. Change of prior left renal partial nephrectomy versus cryoablation reportedly for malignant renal neoplasm with no evident residual, locally recurrent or metastatic disease. Reviewed, dictated and finalized at location A. ICAL DOCUMENTATION SPECIALIST IMPRESSION: 1. No interval change in a 3.7 cm Bosniak 2 right renal cyst or several additio nal bilateral simple cysts. 2. Change of prior left renal partial nephrectomy versus cryoablation reportedl y for malignant renal neoplasm with no evident residual, locally recurrent or m etastatic disease.
[2022-06-05 08:40] LABS: Estimated Glomerular Filt Rate > 60
== END 2022-06-05 08:09 | disposition home or self-care (01) ==
PROVIDERS: PCP Internal Medicine; Visit Provider Urology
DX: C64.2 Malignant neoplasm of left kidney, except renal pelvis (principal)
CPT/HCPCS: 74170; Q9967

== ENCOUNTER 2022-08-31 09:08 | Outpatient (CLI) | payer MEDICARE, SELFPAY ==
[2022-08-31 09:22] LABS: Basophils Absolute Auto 0.04 K/mm3 (0.00-0.10); Basophils Percent Auto 0.7 % (0.0-1.0); Eosinophils Absolute Auto 0.18 K/mm3 (0.02-0.50); Eosinophils Percent Auto 3.3 % (1.0-6.0); Hematocrit 37.9 % (37.0-46.0); Hemoglobin 13.1 g/dL (12.4-15.3); Immature Granulocyte Absolute 0.01 K/mm3 (0.00-0.00); Immature Granulocyte Percent A 0.2 % (0.0-0.0); Lymphocytes Absolute Auto 1.57 K/mm3 (1.10-4.50); Lymphocytes Percent Auto 28.5 % (18.0-42.0); Mean Corpuscular HGB Conc 34.6 g/dL (32.0-36.0); Mean Corpuscular Hemoglobin 34.5 pg (27.0-31.0); Mean Corpuscular Volume 99.7 fL (78.0-102.0); Mean Platelet Volume 9.4 fl (8.7-11.0); Monocytes Percent Auto 7.3 % (2.0-11.0); Neutrophils Absolute Auto 3.3 K/mm3 (1.7-7.2); Platelet Count Result 254 K/mm3 (150-420); White Blood Count 5.5 K/mm3 (4.8-10.8)
[2022-08-31 09:33] LABS: Appearance Urine Clear (Clear); Bilirubin Urine Negative (Negative); Blood Urine Negative (Negative); Color Urine Light Yellow (Yellow); Glucose Urine UA Negative (Negative); Ketones Urine Trace (Negative); Leukocyte Esterase Ur 2+ LEU/UL (Negative); Nitrate Urine Negative (Negative); Protein Urine Trace (Negative); Specific Grav Ur 1.025 (1.010-1.020); Urobilinogen Urine 0.2 mg/dL (0.2-1.0)
[2022-08-31 09:38] LABS: Add Urine Microscopic? NO; RBC Urine None seen /hpf (0-2)
[2022-08-31 09:39] LABS: Bacteria Urine 2+ /hpf; Squamous Epithelial Cell Urine Occasional /hpf (Few)
[2022-08-31 10:00] LABS: MALB Creatinine Ratio 27.1 mg/g (0-30); Microalbumin Urine Random 58.1 mg/L
[2022-08-31 10:01] LABS: Hemoglobin A1C 5.6 % (<5.7)
[2022-08-31 10:27] LABS: Alanine Aminotransferase 34 U/L (16-63); Albumin Level 3.8 g/dL (3.4-5.0); Alkaline Phosphatase 107 U/L (46-116); Anion Gap 7 mmol/L (8-16); Aspartate Amino Transferase 23 U/L (15-37); Bilirubin,Total 0.5 mg/dL (0.00-1.00); Blood Urea Nitrogen 25 mg/dL (7-18); Calcium 8.9 mg/dL (8.5-10.1); Carbon Dioxide 30 mmol/L (21-32); Chloride 107 mmol/L (98-108); Cholesterol 193 mg/dL (0-200); Creatine Kinase 73 U/L (39-308); Estimated Glomerular Filt Rate > 60; Glucose 99 mg/dL (70-99); HDL Direct 41 mg/dL (40-60); LDL Cholesterol Calculated 118 mg/dL (<130); Osmolality Calculated 302 mOsm/kg (285-295); Potassium 4.1 mmol/L (3.5-5.1); Sodium 144 mmol/L (136-145); Triglycerides 168 mg/dL (0-150); Uric Acid 5.3 mg/dL (3.5-7.2)
== END 2022-08-31 09:09 | disposition home or self-care (01) ==
LOC: CHSLAB 09:11
PROVIDERS: PCP Internal Medicine; Visit Provider Internal Medicine
DX: I10 Essential (primary) hypertension (principal); E78.2 Mixed hyperlipidemia; E79.0 Hyperuricemia without signs of inflammatory arthritis and tophaceous disease; R73.01 Impaired fasting glucose; N39.0 Urinary tract infection, site not specified
CPT/HCPCS: 36415; 80053; 80061; 81003; 82043; 82550; 83036; 84550; 85025; 87086; 87088

== ENCOUNTER 2022-10-15 04:26 | Emergency (ER) | payer MEDICARE, SELFPAY ==
[2022-10-15 04:30] VITALS: BP 172/93; PULSE 78; RESP 17; TEMP 36.8; O2SAT 95
--- NOTE | 2022-10-15 04:31 | ED.MALEGU ---
HPI - Male Genitourinary General Chief complaint: Urogenital-Male Stated complaint: abdominal pain Time Seen by Provider: 10/15/22 04:31 Source: patient Mode of arrival: ambulatory Limitations: no limitations History of Present Illness HPI Narrative: 86-year-old male with a history of hypertension, benign prostatic hypertrophy/ prostrate cancer presented to his primary care physician yesterday and was noted to have urinary tract infection. He presents to the ER now with -- retention of urine since 2:00 a.m. -- suprapubic pain -- Intermittent hematuria for the past few days patient has a prior history of retention of urine secondary to BPH/ prostate cancer He had a bladder scan which revealed 589 cc of urine in his bladder. Onset (ago): hour(s) ( started 4 hours ago) Location: abdomen ( suprapubic region) Quality: aching Relieving factors: none Exacerbating factors: none Associated symptoms: Reports denies other symptoms Related Data Home Medications Medication Instructions Recorded Confirmed lisinopril 40 mg tablet 40 mg DAILY 01/12/22 10/15/22 tamsulosin 0.4 mg capsule 0.4 mg PO DAILY 01/12/22 10/15/22 verapamil 240 mg tablet,extended 240 mg PO DAILY 01/12/22 10/15/22 release amoxicillin 875 mg-potassium 1 tablet PO BID 10/15/22 10/15/22 clavulanate 125 mg tablet Allergies Allergy/AdvReac Type Severity Reaction Status Date / Time No Known Allergies Allergy Unverified 01/12/22 16:47 Review of Systems Review of Systems: All systems reviewed & are unremarkable except as noted in HPI and below Constitutional: Constitutional: Reports as per HPI and Reports no additional constitutional complaints Eyes: Eyes: Reports as per HPI and Reports no additional eye complaints ENT: Reports system reviewed and no additional complaints, except as documented and Reports as per HPI Cardiovascular: Cardiovascular: Reports as per HPI and Reports no additional cardiovascular complaints Respiratory: Respiratory: Reports as per HPI and Reports no additional respiratory complaints Gastrointestinal: Gastrointestinal: Reports as per HPI, Reports no additional gastrointestinal complaints and Reports other ( supra pubic pain) Genitourinary: Genitourinary: Reports urinary frequency, Reports urinary hesitancy, Reports urinary incontinence and Reports urinary urgency Comments: retention of urine Musculoskeletal: Musculoskeletal: Reports no additional musculoskeletal complaints and Reports as per HPI Integumentary/Breasts: Skin/Breast: Reports system reviewed and no additional complaints, except as docu and Reports as per HPI Neurologic: Reports system reviewed and no additional complaints, except as documented and Reports as per HPI Psychiatric: Psychiatric: Reports no additional psychiatric complaints and Reports as per HPI Endocrine: Endocrine: Reports no additional endocrine complaints and Reports as per HPI Hematologic/Lymphatic: Hematologic/Lymphatic: Reports no additional hematologic/lymphatic complaints and Reports as per HPI Allergic/Immunologic: Allergic/Immunologic: Reports no additional allergic/immunologic complaints and Reports as per HPI [facility] Past Medical History Medical History (Updated 10/15/22 @ 06:15 by Robert Watkins MD) BPH (benign prostatic hyperplasia) Essential hypertension Social History Social History Smoking status: Never smoker Exam Const: General: cooperative and acute distress Nutritional Appearance: average body habitus Orientation/consciousness: oriented to person, oriented to place and oriented to time HENMT: Head: normal to inspection Ears: hearing grossly normal bilaterally Face/Nose/Sinus: Normal external nose present and Normal nares present Face and sinus: normal facial exam Mouth: Yes Normal oral and palatal mucosa present and Yes lip normal Throat: posterior oropharynx normal Eyes: General: appear
[2022-10-15 05:29] LABS: Basophils Absolute Auto 0.02 K/mm3 (0.00-0.10); Basophils Percent Auto 0.2 % (0.0-1.0); Hemoglobin 12.5 g/dL (12.4-15.3); Immature Granulocyte Absolute 0.03 K/mm3 (0.00-0.00); Immature Granulocyte Percent A 0.3 % (0.0-0.0); Lymphocytes Absolute Auto 0.57 K/mm3 (1.10-4.50); Lymphocytes Percent Auto 6.2 % (18.0-42.0); Mean Corpuscular HGB Conc 34.7 g/dL (32.0-36.0); Mean Corpuscular Hemoglobin 34.4 pg (27.0-31.0); Mean Corpuscular Volume 99.2 fL (78.0-102.0); Mean Platelet Volume 9.5 fl (8.7-11.0); Monocytes Absolute Auto 0.51 K/mm3 (0.10-0.90); Monocytes Percent Auto 5.5 % (2.0-11.0); Neutrophils Absolute Auto 8.1 K/mm3 (1.7-7.2); Neutrophils Percent Auto 87.8 % (50.0-70.0); Platelet Count Result 221 K/mm3 (150-420); Red Blood Count 3.63 M/mm3 (4.70-6.10); Red Cell Distribution Width 12.4 % (11.6-14.4); White Blood Count 9.3 K/mm3 (4.8-10.8)
--- NOTE | 2022-10-15 05:29 | PC.NURSE ---
Attempted multiple times to place different sizes of catheter including coude. Noted foreskin around head of penis very small and obstructing ability to place catheter. ERP inserted forcep into head of foreskin to widen the narrowing and was able to place a 12F catheter. Prior to placement pt had squirting blood tinged urine from tip of penis and had about 300ml urine in urinal. After placement of catheter, pt had another 300ml in young. He reports much relief and has no pain p procedure and placement of catheter.
[2022-10-15 05:43] LABS: Bilirubin Urine 2+ (Negative); Blood Urine 3+ (Negative); Glucose Urine UA Trace (Negative); Ketones Urine 1+ (Negative); Leukocyte Esterase Ur 3+ LEU/UL (Negative); Nitrate Urine Positive (Negative); Protein Urine 3+ (Negative); Specific Grav Ur <= 1.005 (1.010-1.020); pH Urine >=9.0 (5.0-8.0)
[2022-10-15 05:48] LABS: Prothrombin Time 10.8 Seconds (9.50-12.10)
[2022-10-15 05:50] LABS: Add Urine Microscopic? YES; Appearance Urine Cloudy (Clear); Bacteria Urine 2+ /hpf; Color Urine Dark Red (Yellow); RBC Urine >75 /hpf (0-2); WBC Urine >75 /hpf (0-3)
[2022-10-15 05:51] LABS: Alanine Aminotransferase 28 U/L (16-63); Albumin Level 3.5 g/dL (3.4-5.0); Alkaline Phosphatase 108 U/L (46-116); Anion Gap 12 mmol/L (8-16); Aspartate Amino Transferase 21 U/L (15-37); Bilirubin,Total 0.8 mg/dL (0.00-1.00); Blood Urea Nitrogen 26 mg/dL (7-18); Calcium 8.8 mg/dL (8.5-10.1); Carbon Dioxide 24 mmol/L (21-32); Chloride 104 mmol/L (98-108); Estimated CRCL calculation 34 ml/min; Estimated Glomerular Filt Rate 56; Glucose 168 mg/dL (70-99); Osmolality Calculated 298 mOsm/kg (285-295); Potassium 3.5 mmol/L (3.5-5.1); Sodium 140 mmol/L (136-145); Total Protein 6.8 g/dL (6.4-8.2)
[2022-10-15 06:36] VITALS: BP 145/89; PULSE 85; RESP 20; TEMP 36.6; O2SAT 99
--- NOTE | 2022-10-15 06:39 | PC.NURSE ---
Arnold cath emptied approx 500ml bloody urine. Pt instructed and educated on leg bag use and to call urologist Dr Velasquez today.
--- NOTE | 2022-10-17 17:06 | PC.NURSE ---
Final urine culture report: no growth, no further action or treatment needed.
== END 2022-10-15 06:50 | disposition home or self-care (01) ==
PROVIDERS: Emergency Provider Internal Medicine Critical Care Medicine; PCP Internal Medicine
DX: N47.1 Phimosis (principal); N39.0 Urinary tract infection, site not specified; I10 Essential (primary) hypertension; Z79.899 Other long term (current) drug therapy
CPT/HCPCS: 36415; 80053; 81001; 85025; 85610; 85730; 87086; 99283

== ENCOUNTER 2023-01-03 14:38 | Emergency (ER) | payer MEDICARE, SELFPAY ==
[2023-01-03] VITALS (30 sets, daily range): BP systolic 121–159; BP diastolic 71–97; PULSE 46–91; RESP 10–22; TEMP 36.9; O2SAT 92–99
--- NOTE | ~2023-01-03 | CT_ITS ---
EXAMINATION: CT abdomen pelvis w con DATE: 01/03/2023 16:48 INDICATION: rectal bleeding abdominal pain diarrhea TECHNIQUE: Computed tomography (CT) of the abdomen and pelvis was performed with 100 mL Omnipaque-350 intravenous contrast. Automated exposure control and iterative reconstruction technique were employe d. The dose-length product was 390.68 mGy-cm. COMPARISON: 09/19/2021; CT abdomen 06/05/2022. FINDINGS: Lower thorax: Aortic valve and coronary artery calcification. Minimal bilateral symmetric gynecomasti a. Left lower lobe air cyst. Liver: Enlarged, with diffuse fatty infiltration. Biliary/Gallbladder: Gallbladder is normal. No bile duct dilation. Pancreas: Mild atrophy Spleen: Normal. Adrenals:No mass. Kidneys: Bilateral simple cysts and nonobstructing calculi. Stable partially calcified Bosniak 2 cyst in the right lower pole. Stable postablative or postsurgical change in the left midpole. No suspicio us mass, obstructing stone, or hydronephrosis. GI tract: Mild distal esophageal and gastric wall edema No small or large bowel dilation. Mild coloni c wall edema affecting the descending colon. Normal appendix. Diverticulosis without diverticulitis. Mesentery/Peritoneum: No ascites, mass, or free air. Retroperitoneum: No mass. Atherosclerotic abdominal aortic and/or arterial calcifications. Pelvis: Urinary bladder wall thickening and inflammation. Prostatomegaly with calcifications and surg ical or biopsy clips. Soft Tissues: Small uncomplicated fat-containing umbilical and bilateral inguinal hernias. Left lower quadrant subcutaneous scar. Bones: No acute osseous finding. IMPRESSION: Mild esophagitis/gastritis. Hepatomegaly with steatosis. Mild colitis involving the descending colon, likely on an infectious, inflammatory, or ischemic basis . Cystitis versus bladder wall thickening from outlet obstruction. Reviewed, dictated and finalized at location K. IMPRESSION: Mild esophagitis/gastritis. Hepatomegaly with steatosis. Mild colitis involving the descending colon, likely on an infectious, inflammat ory, or ischemic basis. Cystitis versus bladder wall thickening from outlet obstruction.
--- NOTE | 2023-01-03 15:23 | ED.ABDPAIN ---
HPI - Abdominal Pain General Chief Complaint: Abdominal Pain Stated Complaint: blood in stool Time Seen by Provider: 01/03/23 15:22 Source: patient Mode of arrival: ambulatory Limitations: no limitations History of Present Illness HPI narrative: 87-year-old white male complains of diarrhea since yesterday that had a little bit of blood in It. He says the blood is increased he has had 7 diarrheal stools with blood in it since yesterday. Gets occasional abdominal cramping when he goes to the bathroom to have a bowel movement. He rated as a 3/10 as a dull ache. At rest at 0 but when he tightens up his lower abdomen it is a 1/10. The bloods been bright red per rectum. Had been darker today as well. Denies any nausea vomiting or fever. Said he felt weak on the stool 1 time he put his head back he thought he passed out for a little bit. Did not fall off the toilet. Does not have any problems voiding. Does have a history of frequent UTIs prostate cancer and urinary retention and BPH. But now he says he is voiding without difficulty. He has not passed any clots of blood and has not had any bouts of constipation. He walks with a cane because he has poor balance and has a hearing aid in his left ear has no changes in his walking or in his hearing. Denies any problems talking or seeing cough for fevers sore throat runny nose shortness of breath difficulty breathing rash or itching bruising lumps or bumps or swelling. Saw his urologist knee scheduled to get a circumcision so he does not have any further bouts of urinary retention after the insurance okays this. This past summer he had urinary retention and had a Arnold catheter at 1 point. Denies any other sites of bleeding. Denies any black stools. Denies any other pain elsewhere. Past medical history hypertension BPH prostate cancer UTIs urinary retention kidney cancer for which she had surgery and they froze it and now they are following him for this. Denies any history of heart lung kidney disease liver disease bone disease anemia thyroid disease or arthritis Allergies no known drug allergies Medications lisinopril verapamil for hypertension and tamsulin Related Data Home Medications Medication Instructions Recorded Confirmed lisinopril 40 mg tablet 40 mg PO DAILY 01/12/22 01/03/23 tamsulosin 0.4 mg capsule 0.4 mg PO DAILY 01/12/22 01/03/23 verapamil 240 mg tablet,extended 240 mg PO DAILY 01/12/22 01/03/23 release Allergies Allergy/AdvReac Type Severity Reaction Status Date / Time No Known Allergies Allergy Verified 01/03/23 15:12 Review of Systems Review of Systems: All systems reviewed & are unremarkable except as noted in HPI and below PMFSH Past Medical History Medical History BPH (benign prostatic hyperplasia) Essential hypertension Social History Social History Smoking status: Never smoker Exam Narrative: White male patient with no apparent distress.? vital signs are normal. Head normocephalic, atraumatic.? Eyes conjunctiva pink sclera nonicteric.? Extraocular movements are intact.? Ears externally normal.? Oropharynx is clear with moist mucous membranes without exudates.? Neck is supple nontender no lymphadenopathy.? Back is nontender.? Lungs are clear.? Heart is regular rate and rhythm without murmurs gallops or rubs.? Chest wall nontender.? Back is nontender. Abdomen is soft and nontender no hepatosplenomegaly or masses no CVA tenderness no abdominal bruits.? Rectal exam normal sphincter tone. Gross maroon blood on the gloved finger no masses or tenderness. Extremities no cyanosis clubbing or edema.? Skin is warm and dry without rashes or lesions.? Neurological patient is alert and oriented x4.? Motor and sensory grossly intact.? Gait is normal with his cane. Course Vital Signs Vital signs: Vital Signs Temperature 36.9 C 09
[2023-01-03] MEDS: SODIUM CHLORIDE 0.9% IV 1,000 ML 999 ML IV CONT (16:05)
[2023-01-03 16:06] LABS: Basophils Absolute Auto 0.05 K/mm3 (0.00-0.10); Basophils Percent Auto 0.7 % (0.0-1.0); Eosinophils Absolute Auto 0.19 K/mm3 (0.02-0.50); Eosinophils Percent Auto 2.8 % (1.0-6.0); Hematocrit 34.1 % (37.0-46.0); Hemoglobin 11.6 g/dL (12.4-15.3); Immature Granulocyte Absolute 0.02 K/mm3 (0.00-0.00); Immature Granulocyte Percent A 0.3 % (0.0-0.0); Lymphocytes Absolute Auto 1.64 K/mm3 (1.10-4.50); Lymphocytes Percent Auto 24.2 % (18.0-42.0); Mean Corpuscular Hemoglobin 34.3 pg (27.0-31.0); Mean Corpuscular Volume 100.9 fL (78.0-102.0); Mean Platelet Volume 9.4 fl (8.7-11.0); Monocytes Absolute Auto 0.53 K/mm3 (0.10-0.90); Monocytes Percent Auto 7.8 % (2.0-11.0); Neutrophils Absolute Auto 4.4 K/mm3 (1.7-7.2); Neutrophils Percent Auto 64.2 % (50.0-70.0); Platelet Count Result 218 K/mm3 (150-420); Red Blood Count 3.38 M/mm3 (4.70-6.10); White Blood Count 6.8 K/mm3 (4.8-10.8)
[2023-01-03] MEDS: PANTOPRAZOLE SODIUM IV 40 MG VIAL IV PUSH (16:08)
[2023-01-03] MEDS: ONDANSETRON INJ 4 MG/2 ML VIAL IV PUSH (16:08)
[2023-01-03 16:19] LABS: Partial Thromboplastin Time 27.2 SEC (23.90-30.70); Prothrombin Time 10.8 Seconds (9.50-12.10)
[2023-01-03 16:20] LABS: Alanine Aminotransferase 29 U/L (16-63); Albumin Level 3.1 g/dL (3.4-5.0); Alkaline Phosphatase 95 U/L (46-116); Anion Gap 11 mmol/L (8-16); Aspartate Amino Transferase 16 U/L (15-37); Bilirubin,Total 0.4 mg/dL (0.00-1.00); Blood Urea Nitrogen 28 mg/dL (7-18); Calcium 9.1 mg/dL (8.5-10.1); Carbon Dioxide 26 mmol/L (21-32); Chloride 107 mmol/L (98-108); Estimated CRCL calculation 36 ml/min; Estimated Glomerular Filt Rate 60; Glucose 109 mg/dL (70-99); Osmolality Calculated 304 mOsm/kg (285-295); Potassium 3.1 mmol/L (3.5-5.1); Sodium 144 mmol/L (136-145); Total Protein 6.2 g/dL (6.4-8.2)
[2023-01-03 17:18] LABS: Bilirubin Urine Negative (Negative); Blood Urine 2+ (Negative); Color Urine Light Yellow (Yellow); Glucose Urine UA Negative (Negative); Ketones Urine Negative (Negative); Leukocyte Esterase Ur 1+ (Negative); Nitrate Urine Negative (Negative); Protein Urine Negative (Negative); Specific Grav Ur 1.025 (1.010-1.020); Urobilinogen Urine 0.2 mg/dL (0.2-1.0)
[2023-01-03 17:29] LABS: Add Urine Microscopic? YES; Amorphous Sediment Urine Moderate; Appearance Urine Cloudy (Clear); Squamous Epithelial Cell Urine Many /hpf (Few); WBC Clumps Urine Present /hpf
[2023-01-03 17:30] LABS: Bacteria Urine 3+ /hpf; Hyaline Casts Urine 50+ /lpf; Mucus Urine Moderate /lpf
== END 2023-01-03 19:35 | disposition home or self-care (01) ==
PROVIDERS: Emergency Provider Emergency Medicine; PCP Internal Medicine
DX: K52.9 Noninfective gastroenteritis and colitis, unspecified (principal); N39.0 Urinary tract infection, site not specified; K20.91 Esophagitis, unspecified with bleeding; K29.01 Acute gastritis with bleeding; E87.6 Hypokalemia; I10 Essential (primary) hypertension; Z85.46 Personal history of malignant neoplasm of prostate; Z79.899 Other long term (current) drug therapy
CPT/HCPCS: 36415; 74177; 80053; 81001; 85025; 85610; 85730; 96361; 96374; 96375; 99284; C9113; J2405; J7030; Q9967

== ENCOUNTER 2023-01-07 11:17 | Outpatient (CLI) | payer MEDICARE, SELFPAY ==
--- NOTE | 2023-01-07 11:19 | ECG_ITS ---
Measurements Intervals [place] Rate: 61 P: 32 SD: 214 QRS: 18 QRSD: 91 T: 30 QT: 335 QTc: 337 Interpretive Statements SINUS RHYTHM WITH FIRST DEGREE AV BLOCK BORDERLINE ST-T WAVE ABNORMALITY- INF/HIGH LAT LEADS BASELINE ARTIFACT- I, II, III, AVR, AVL, AVF BORDERLINE ECG COMPARED TO ECG 07/11/2018 11:48:41 FIRST DEGREE AV BLOCK NOW PRESENT T-WAVE ABNORMALITY NOW PRESENT Electronically Signed On 01-07-2023 12:15:37 CDT by Rodriguez Tillman D.O.
== END 2023-01-07 11:18 | disposition home or self-care (01) ==
LOC: CHSCARD 11:19
PROVIDERS: PCP Internal Medicine; Visit Provider Anesthesiology
DX: Z01.818 Encounter for other preprocedural examination (principal); I44.0 Atrioventricular block, first degree; I10 Essential (primary) hypertension; R93.1 Abnormal findings on diagnostic imaging of heart and coronary circulation
CPT/HCPCS: 93005

== ENCOUNTER 2023-01-12 01:37 | Day surgery (SDC) | payer MEDICARE, SELFPAY ==
[2023-01-06 10:04] VITALS: BMI 25.7
--- NOTE | 2023-01-06 10:34 | PC.NURSE ---
Report to the Outpatient Waiting Room, entrance under the green pavilion located off [facility], at time __10:00AM on date ___01/12/23____. Planned Procedure Time: __12:00PM . Time changes happen often and if your time is changed the preop area will call you the afternoon before. - You and your visitor will be asked to self-screen and do not enter if you have any COVID symptoms. - A mask is optional within the hospital at this time. Patients may have clear liquids (water, carbonated beverages, clear teas, apple juice) until 3 hours prior to surgery with a maximum of 20 ounces. - No food from midnight until time of surgery. Take the following medications with a SIP of water the morning of surgery: __VERAPAMIL DO NOT STOP ANY OF YOUR OTHER PRESCRIPTION MEDICATIONS PRIOR TO SURGERY ?EXCEPT THE FOLLOWING Medications to discontinue per physician ____HOLD ASPIRIN 7 DAYS PRE-OP PER DR OH Date to take last dose____01/05/23 Please no make-up, nail burundian, hairspray, perfume, deodorant, or body powder the day of surgery. No jewelry (including any body piercings) or valuables the day of surgery, leave them at home. Please take a shower or bath the night before, or the morning of, surgery with an antibacterial soap. Wear comfortable, loose fitting clothing. Children are encouraged to wear pajamas. - Jewelry must be removed prior to entering the operating room. Rings and piercings that are not removed may be cut off. - The hospital will not accept responsibility for valuables. - Please leave all valuables, including medications, at home the day of surgery. If you are going home after surgery, a licensed truck driver instructor must drive you home. - NO public transportation without another adult if you receive anesthesia. - We recommend that an adult stay with you for 24 hours following discharge. - We also recommend that you do not drive, make important decision, drink alcoholic beverages, or take any drugs that were not prescribed by your health care provider for at least 24 hours after your discharge time. Follow any additional instructions given to you from your surgeon. If you or anyone in your household have experienced Covid symptoms in the past week, please notify your surgeon or the nurse liaison at the phone number below for possible testing. Telephone instructions given to _PATIENT and asked if any additional questions and then verbalized understanding. Patient advised to call surgeon office or pre surgery nurse liaison [phone] if any additional questions.
[2023-01-12] MEDS: LACTATED RINGERS 1,000 ML 30 ML IV CONT (10:28)
[2023-01-12 10:39] VITALS: BP 102/71; PULSE 66; RESP 18; TEMP 36.2; O2SAT 100
--- NOTE | 2023-01-12 12:43 | WPDANESEPPF ---
Anes - Initial Pre Proc Eval Procedure: Operation Date: 01/12/23 12:00 Proposed Procedures p Circumcision - John Velasquez MD Date/Time: 01/12/23 12:43 Surgeon: John Velasquez MD Pre Op Diagnosis: phimosis Patient Data Age: 87 Gender: M Height: 1.63 m Weight: 68.6 kg Last Vital Signs Temp 97.2 F L 01/12/23 10:39 Pulse 66 01/12/23 10:39 Resp 18 01/12/23 10:39 BP 102/71 01/12/23 10:39 Pulse Ox 100 01/12/23 10:39 O2 Del Method Room Air 01/12/23 10:39 Allergies Allergy/AdvReac Type Severity Reaction Status Date / Time No Known Allergies Allergy Verified 01/06/23 09:57 Home Medications Medication Instructions Recorded Confirmed Type lisinopril 40 mg tablet 40 mg PO DAILY 01/12/22 01/06/23 History tamsulosin 0.4 mg capsule 0.4 mg PO DAILY 01/12/22 01/06/23 History verapamil 240 mg tablet,extended 240 mg PO BID 01/12/22 01/06/23 History release pantoprazole 40 mg tablet,delayed 40 mg PO HS 30 days #30 tabs 01/03/23 01/06/23 Rx release (Protonix) potassium chloride 20 mEq 20 meq PO DAILY #7 tabs 01/03/23 01/06/23 Rx tablet,extended release(part/cryst) amoxicillin 875 mg-potassium 1 tablet PO DAILY 01/06/23 01/06/23 History clavulanate 125 mg tablet aspirin 81 mg tablet 81 mg PO DAILY 01/06/23 01/06/23 History Patient hx anesthesia problems: other (patient has prolonged awakening from anesthesia) Family hx anesthesia problems: none Results Review: All pre-operative results and documents have been reviewed as part of the pre-operative evaluation. [facility] Past Medical History Medical History BPH (benign prostatic hyperplasia) Essential hypertension Social History Social History Smoking packs per day: 0.5 Smoking cigarettes per day: 10.0 Years smoked: 3 Smoking pack-years: 1.50 Smoking status: Former smoker Tobacco type: cigarettes Smoking end date: 10/11/1963 Alcohol intake: current Substance use: never Living arrangements: with family Additional living arrangements comments: Spiritual care concerns: No Anes - Eval Final PreProcedure Day of Procedure 01/12/23 12:43 Patient weight: normal Heart: regular rate and rhythm Lungs: clear to auscultation Airway: Mallampati scale class II Neurological: alert and oriented Last oral intake: >/= 8 hours ASA classification: III Emergent: no Anesthetic plan: proceed Anesthesia type and monitoring: general GIVS (surgeon to do penile block to lessen anesthetic medications) and standard monitoring Results Review: All pre-operative results and documents have been reviewed as part of the pre-operative evaluation. Informed Consent: The patient's anesthetic plan and its attendant risks and benefits were discussed with the patient/family/POA. Questions were solicited and answers provided to the satisfaction of the patient/family/POA.
[2023-01-12] MEDS: ACETAMINOPHEN 500 MG TABLET PO (12:46)
--- NOTE | 2023-01-12 12:49 | SUR.PREOP ---
called pt and talked to about a delay in OR. pt and are very understanding.
--- NOTE | 2023-01-12 13:15 | WPDHPUPDATE1 ---
History and Physical Update Update Date/Time: 01/12/23 13:15 History and Physical has been reviewed, including an updated exam of the patient. There are NO changes in the patient's condition. Risks, benefits, and alternatives have been discussed and questions answered. Patient agrees to proceed with procedure. Proceed with circumcision
[2023-01-12] MEDS: ceFAZolin 2 GM/D5W 50 ML 2 GM/50 ML BAG IVPB (13:30)
[2023-01-12] MEDS: BUPivacaine HCL 0.5% PF 30 ML VIAL 28 ML INFILTRATE (13:51)
--- NOTE | 2023-01-12 14:08 | SUR.OPER ---
tooth decay and broken tooth upper top noted in preop
--- NOTE | 2023-01-12 14:30 | W.PM.PROC2 ---
Procedure Note - Detailed Date of Procedure 01/12/23 Pre-op Diagnosis phimosis Post-op Diagnosis Same Procedure Performed circumcision Surgeon John Velasquez MD Anesthesia General Description of Procedure Patient is taken the operative suite correctly identified. Once anesthesia was obtained he was prepped and draped usual sterile fashion. He has a very pinpoint opening. I was able to place a mosquito into this opening and expanded. I then did a dorsal slit. He has quite a bit of scarring on the lateral inferior aspects of his penis. We freed the foreskin up as much as we could. At this point we simply excise some of the stenotic and fibrotic foreskin. We then reapproximated the edges using 3-0 chromic in interrupted fashion. Antibiotic ointment was applied as was is Xeroform gauze. I did do a penile block prior to the procedure using 0.5% Marcaine. Patient tolerated procedure well without any complications and was taken recovery stable condition. He is to apply ointment b.i.d.. He will follow-up in 2-3 weeks time. This completes dictation. Please send a copy this op note to my office Estimated Blood Loss 0 Drains No Packing No Pathology Yes Complications No immediate complications Condition Stable Disposition PACU
[2023-01-12 14:35] VITALS: BP 97/62; PULSE 48; RESP 14; O2SAT 98
[2023-01-12 15:00] VITALS: BP 108/64; PULSE 44; RESP 16; O2SAT 96
[2023-01-12] MEDS: oxyCODONE HCL (*CRX) 5 MG TAB IR PO (15:13)
[2023-01-12 15:30] VITALS: BP 131/70; PULSE 46; RESP 16
--- NOTE | 2023-01-12 16:11 | SUR.PHASEII ---
1600: IV dc'd, patient dressed and waiting on for ride home.
== END 2023-01-12 16:20 | disposition home or self-care (01) ==
PROVIDERS: PCP Internal Medicine; Visit Provider Urology
PROC: (CPT 54161; principal; 2023-01-12 12:00)
DX: N47.1 Phimosis (principal); N40.0 Benign prostatic hyperplasia without lower urinary tract symptoms; I10 Essential (primary) hypertension; Z87.891 Personal history of nicotine dependence
CPT/HCPCS: 54161; 88304; A9270; J0690; J2704; J3010; J7120

== ENCOUNTER 2023-03-24 08:31 | Outpatient (CLI) | payer MEDICARE, SELFPAY ==
[2023-03-24 08:50] LABS: Basophils Absolute Auto 0.04 K/mm3 (0.00-0.10); Basophils Percent Auto 0.8 % (0.0-1.0); Eosinophils Percent Auto 3.9 % (1.0-6.0); Hematocrit 39.7 % (37.0-46.0); Hemoglobin 13.3 g/dL (12.4-15.3); Immature Granulocyte Absolute 0.01 K/mm3 (0.00-0.00); Immature Granulocyte Percent A 0.2 % (0.0-0.0); Lymphocytes Absolute Auto 1.38 K/mm3 (1.10-4.50); Lymphocytes Percent Auto 26.7 % (18.0-42.0); Mean Corpuscular HGB Conc 33.5 g/dL (32.0-36.0); Mean Corpuscular Hemoglobin 33.6 pg (27.0-31.0); Mean Corpuscular Volume 100.3 fL (78.0-102.0); Mean Platelet Volume 9.1 fl (8.7-11.0); Monocytes Percent Auto 7.8 % (2.0-11.0); Neutrophils Absolute Auto 3.1 K/mm3 (1.7-7.2); Neutrophils Percent Auto 60.6 % (50.0-70.0); Platelet Count Result 255 K/mm3 (150-420); Red Blood Count 3.96 M/mm3 (4.70-6.10); Red Cell Distribution Width 12.4 % (11.6-14.4); White Blood Count 5.2 K/mm3 (4.8-10.8)
[2023-03-24 08:54] LABS: Appearance Urine Clear (Clear); Bilirubin Urine Negative (Negative); Blood Urine Trace-Intact (Negative); Color Urine Yellow (Yellow); Glucose Urine UA Negative (Negative); Ketones Urine Negative (Negative); Leukocyte Esterase Ur Trace LEU/UL (Negative); Nitrate Urine Negative (Negative); Protein Urine Negative (Negative); Specific Grav Ur >= 1.030 (1.010-1.020); Urobilinogen Urine 0.2 mg/dL (0.2-1.0); pH Urine 5.5 (5.0-8.0)
[2023-03-24 09:00] LABS: Add Urine Microscopic? YES; Bacteria Urine Trace /hpf; Mucus Urine Moderate /lpf; RBC Urine 0-2 /hpf (0-2); Squamous Epithelial Cell Urine Few /hpf (Few); WBC Urine 0-3 /hpf (0-3)
[2023-03-24 09:01] LABS: Creatinine Urine 260.28 mg/dL (40-278); MALB Creatinine Ratio 15.7 mg/g (0-30); Microalbumin Urine Random 41.1 mg/L
[2023-03-24 09:16] LABS: Hemoglobin A1C 5.6 % (<5.7)
[2023-03-24 09:29] LABS: Alanine Aminotransferase 29 U/L (16-63); Albumin Level 3.6 g/dL (3.4-5.0); Alkaline Phosphatase 108 U/L (46-116); Anion Gap 4 mmol/L (8-16); Aspartate Amino Transferase 16 U/L (15-37); Bilirubin,Total 0.7 mg/dL (0.00-1.00); Blood Urea Nitrogen 15 mg/dL (7-18); Calcium 8.7 mg/dL (8.5-10.1); Carbon Dioxide 32 mmol/L (21-32); Chloride 102 mmol/L (98-108); Cholesterol 183 mg/dL (0-200); Creatine Kinase 67 U/L (39-308); Estimated Glomerular Filt Rate > 60; Glucose 100 mg/dL (70-99); HDL Direct 33 mg/dL (40-60); LDL Cholesterol Calculated 124 mg/dL (<130); Osmolality Calculated 286 mOsm/kg (285-295); Potassium 3.7 mmol/L (3.5-5.1); Sodium 138 mmol/L (136-145); Total Protein 6.5 g/dL (6.4-8.2); Triglycerides 130 mg/dL (0-150); Uric Acid 4.9 mg/dL (3.5-7.2)
== END 2023-03-24 08:32 | disposition home or self-care (01) ==
LOC: CHSLAB 08:34
PROVIDERS: PCP Internal Medicine; Visit Provider Internal Medicine
DX: N39.0 Urinary tract infection, site not specified (principal); I10 Essential (primary) hypertension; E78.2 Mixed hyperlipidemia; E79.0 Hyperuricemia without signs of inflammatory arthritis and tophaceous disease; R73.01 Impaired fasting glucose
CPT/HCPCS: 36415; 80053; 80061; 81001; 82043; 82550; 83036; 84550; 85025

== ENCOUNTER 2023-03-29 11:51 | Outpatient (CLI) | payer MEDICARE, SELFPAY ==
--- NOTE | ~2023-03-29 | XR_ITS ---
EXAMINATION: XR sacroiliac joints min 3V INDICATION: Lumbar radiculopathy TECHNIQUE: Three views of the sacroiliac joints are obtained. COMPARISON: None available FINDINGS: Bone alignment is normal. There is no fracture. No abnormal erosion or sclerosis of the sac roiliac joints are identified. There is severe spondylosis of the visualized lumbar spine. IMPRESSION: 1. Unremarkable sacroiliac joints. Reviewed, dictated and finalized at location B. ECONOMICS TEACHER
--- NOTE | ~2023-03-29 | XR_ITS ---
EXAMINATION: XR lumbar spine 2-3V DATE: 03/29/2023 12:43 INDICATION: Lumbar radiculopathy TECHNIQUE: Anteroposterior and lateral views of the lumbar spine, and cone-down lateral view of the l umbosacral junction were obtained. COMPARISON: None. FINDINGS: There are 17 degrees of lumbar levoscoliosis. The vertebral body heights are maintained. Th ere is severe loss of intervertebral disc space height throughout the lumbar spine. Bone alignment is normal. There is no fracture. 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 Small degenerative osteophytes project from the anterior endplates of multiple vertebral bodies. Calcified atherosclerosis is noted. IMPRESSION: 1. Severe lumbar spondylosis without acute findings. Reviewed, dictated and finalized at location B. ER REPAIRER
== END 2023-03-29 11:52 | disposition home or self-care (01) ==
LOC: CHSIMG 11:52
PROVIDERS: PCP Internal Medicine; Visit Provider Internal Medicine
DX: M54.16 Radiculopathy, lumbar region (principal); M43.06 Spondylolysis, lumbar region
CPT/HCPCS: 72100; 72202

== ENCOUNTER 2023-12-19 10:07 | Emergency (ER) | payer MEDICARE, SELFPAY ==
--- NOTE | ~2023-12-19 | XR_ITS ---
Right wrist Technique: PA, oblique, lateral, and ulnar deviation views were obtained. Clinical History: Status post fall Findings: No acute fracture or dislocation is seen. Osseous alignment is anatomic. Joint spaces are p reserved. Soft tissues are unremarkable. Impression: Unremarkable right wrist radiographs. Reviewed, dictated and finalized at location . Impression: Unremarkable right wrist radiographs.
--- NOTE | ~2023-12-19 | CT_ITS ---
CT Facial Bones and Cervical Spine Clinical Indication: Status post fall Technique: Contiguous axial scans were obtained through the facial bones and cervical spine followed by coronal and sagittal reconstructions. Dose reduction technique was used on this scan by utilizing automated exposure control and iterative reconstruction technique. The dose-length product (DLP) was 391.60 mGy-cm. Findings: CT facial bones: No fractures are identified. The visualized paranasal sinuses are clear. Intraorbita l soft tissues appear normal. CT cervical spine: No fractures or subluxation. There are extensive flowing confluent osteophytes ex tending from C3 to T2. There is fusion across the C3-C4, C4-C5, and C5-C6 disc spaces. There is proba ble fusion across the C7-T1 disc space. There is severe degenerative disc change at C2-C3 and C6-C7. There is advanced degenerative changes reticulation of the odontoid process with the anterior arch of C1. There is disc ossify complex at C2-C3 with mild canal stenosis and bilateral neural foraminal na rrowing, with bilateral facet arthropathy. There is disc ossify compress with at least moderate canal stenosis and probable cord compression at C3-C4, with bilateral neural foraminal narrowing. There is disc osteophyte complex with at least moderate to possibly severe canal stenosis and cord compressio n at C4-C5, severe bilateral neural foraminal narrowing. There is disc osteophyte complex at C5-C6 wi th minimal canal stenosis. There is disc ossify complex with minimal canal stenosis at C6-C7, but adv anced bilateral neural foraminal narrowing. There is disc osteophyte compresses probable minimal paul l stenosis at C6-C7, with bilateral mild neural foraminal narrowing. No prevertebral soft tissue swel ling. Impression: No fracture is seen in the facial bones. No fracture or subluxation of the cervical spine. Severe degenerative spondylosis throughout the cervical spine, with extensive fusion and anterior michael wing osteophytes, as well as multilevel moderate to severe canal stenosis and neural foraminal narrow ing. Please see details above. Reviewed, dictated and finalized at [facility]. Impression: No fracture is seen in the facial bones. No fracture or subluxation of the cervical spine. Severe degenerative spondylosis throughout the cervical spine, with extensive f usion and anterior flowing osteophytes, as well as multilevel moderate to sever e canal stenosis and neural foraminal narrowing. Please see details above.
--- NOTE | ~2023-12-19 | CT_ITS ---
Non-contrast Head CT History: Status post fall Technique: Axial non-contrast imaging of the brain was performed. Dose reduction technique was used on this scan by utilizing automated exposure control and iterative reconstruction technique. The dose -length product (DLP) was 605.33 mGy-cm. Findings: There is no evidence of intracranial hemorrhage, mass lesion, or acute infarct. Brain par enchyma appears normal. The ventricles and subarachnoid spaces are normal in size. The calvarium ap pears normal. The visualized paranasal sinuses and mastoid air cells are clear. Impression: No significant abnormality seen. Reviewed, dictated and finalized at location . Impression: No significant abnormality seen.
--- NOTE | 2023-12-19 10:11 | ED.FALL ---
HPI - Fall General Chief Complaint: Fall Stated Complaint: fall Source: patient Mode of arrival: ambulatory Limitations: no limitations History of Present Illness HPI Narrative: patient is an 88-year-old male who lost his footing on a ground level fall prior to arrival. Patient fell and hurt his right forehead and right wrist. This was a closed head injury. He has no complaints at this time. He is not on blood thinners. He did not have syncope. MD complaint: fall Onset (ago): hour(s) (1) Fall from: standing Fall witnessed: yes, by family Place fall occurred: street Loss of consciousness: none Prolonged down time: no Symptoms prior to fall: none Context: tripped/slipped Location of injury: head and face Location of injury - extremities: Right: forearm ( Wrist) Severity: mild Severity scale (1-10): 1 Quality: aching Associated symptoms (after fall): denies Related Data Home Medications Medication Instructions Recorded Confirmed lisinopril 40 mg tablet 40 mg PO DAILY 01/12/22 02/17/23 tamsulosin 0.4 mg capsule 0.4 mg PO DAILY 01/12/22 02/17/23 verapamil 240 mg tablet,extended 240 mg PO BID 01/12/22 02/17/23 release aspirin 81 mg tablet 81 mg PO DAILY 01/06/23 02/17/23 Allergies Allergy/AdvReac Type Severity Reaction Status Date / Time No Known Allergies Allergy Verified 02/17/23 10:59 Review of Systems Review of Systems: All systems reviewed & are unremarkable except as noted in HPI and below Constitutional: Constitutional: Reports no additional constitutional complaints Eyes: Eyes: Reports no additional eye complaints ENT: Reports system reviewed and no additional complaints, except as documented Cardiovascular: Cardiovascular: Reports no additional cardiovascular complaints Respiratory: Respiratory: Reports no additional respiratory complaints Gastrointestinal: Gastrointestinal: Reports no additional gastrointestinal complaints Genitourinary: Genitourinary: Reports no additional male genitourinary complaints Musculoskeletal: Musculoskeletal: Reports no additional musculoskeletal complaints Integumentary/Breasts: Skin/Breast: Reports system reviewed and no additional complaints, except as docu Neurologic: Reports system reviewed and no additional complaints, except as documented Psychiatric: Psychiatric: Reports no additional psychiatric complaints Endocrine: Endocrine: Reports no additional endocrine complaints Hematologic/Lymphatic: Hematologic/Lymphatic: Reports no additional hematologic/lymphatic complaints Allergic/Immunologic: Allergic/Immunologic: Reports no additional allergic/immunologic complaints PMFSH Past Medical History Medical History BPH (benign prostatic hyperplasia) Cancer Essential hypertension Social History Social History Smoking packs per day: 0.5 Smoking cigarettes per day: 10.0 Years smoked: 3 Smoking pack-years: 1.50 Smoking status: Former smoker Tobacco type: cigarettes Smoking end date: 10/11/1963 Alcohol intake: current Substance use: never Lack of Transportation: No Lack of Food: Never True Current Housing: I Have Housing Concerned About Future Housing: No Difficulty Paying Gas/Electric Bills: No Difficulty Paying for Meds: No Currently Unemployed: No Education: High School Diploma/GED Difficulty w/ Childcare or Family Care: No Living arrangements: with family Additional living arrangements comments: Spiritual care concerns: No Exam Const: General: healthy appearing Nutritional Appearance: well nourished Orientation/consciousness: patient oriented x3 HENMT: Head: normal to inspection Ears: external ears normal Face/Nose/Sinus: Normal external nose present Eyes: Conjunctivae: conjunctivae normal Pupils: Equal, round and reactive pupils present EOM: EOMs intact bilaterally Neck: N
[2023-12-19 10:15] VITALS: BP 138/94; PULSE 60; RESP 16; TEMP 36.4; O2SAT 99
[2023-12-19] MEDS: TETANUS,DIPHTHERIA,AC PERTUSSIS ADULT 0.5 ML (ADACEL) IM (10:39)
[2023-12-19] MEDS: NEOMYCIN/POLYMYXIN/BACITRACIN OINTMENT PACKET 1 PACKET TOPICAL (10:42)
[2023-12-19] MEDS: LIDOCAINE HCL 1% LOCAL INJ 10 ML VIAL INFILTRATE (10:42)
[2023-12-19 12:05] VITALS: BP 164/78; PULSE 77; RESP 20; TEMP 36.9; O2SAT 94
== END 2023-12-19 12:20 | disposition home or self-care (01) ==
PROVIDERS: Emergency Provider Emergency Medicine; PCP Internal Medicine
DX: S01.111A Laceration without foreign body of right eyelid and periocular area, initial encounter (principal); S60.211A Contusion of right wrist, initial encounter; Z23 Encounter for immunization; W18.30XA Fall on same level, unspecified, initial encounter; Y92.410 Unspecified street and highway as the place of occurrence of the external cause
CPT/HCPCS: 12011; 70450; 70486; 72125; 73110; 90471; 90715; 99284

== ENCOUNTER 2024-04-13 13:52 | Outpatient (CLI) | payer MEDICARE, SELFPAY ==
--- NOTE | ~2024-04-13 | XR_ITS ---
Clinical Indication: Cough, Covid PA and lateral views of the chest: Comparison: 04/14/2019 Findings: The lungs are clear, without evidence of focal consolidation or pleural effusion. Cardiome diastinal silhouette is within normal limits. Bones and soft tissues are stable. Impression: Clear lungs. Reviewed, dictated and finalized at [facility]. ONAL PRODUCTION MANAGER Impression: Clear lungs.
[2024-04-13 14:04] LABS: Hematocrit 38.6 % (37.0-46.0); Hemoglobin 12.8 g/dL (12.4-15.3); Mean Corpuscular HGB Conc 33.2 g/dL (32-36); Mean Corpuscular Volume 99.5 fL (78.0-102.0); Platelet Count Result 211 K/mm3 (150-420); Red Blood Count 3.88 M/mm3 (4.70-6.10); Red Cell Distribution Width 12.5 % (11.6-14.4); White Blood Count 4.8 K/mm3 (4.8-10.8)
[2024-04-13 14:13] LABS: Band Neutrophils Percent 0 % (0-6); Basophils Absolute Manual 0.04 K/mm3 (0-0.1); Basophils Percent Manual 1 % (0-1); Eosinophils Absolute Manual 0.28 K/mm3 (0.02-0.50); Eosinophils Percent Manual 6 % (1-6); Lymphocytes Absolute Manual 1.48 K/mm3 (1.1-4.5); Lymphocytes Percent Manual 31 % (18-44); Monocytes Absolute Manual 0.57 K/mm3 (0.1-0.90); Monocytes Percent Manual 12 % (3-9); Neutrophils Percent Manual 50 % (46-73); Platelet Estimate Adequate (Adequate); Total Cells Counted 100
== END 2024-04-13 13:53 | disposition home or self-care (01) ==
LOC: CHSLAB 13:54
PROVIDERS: PCP Internal Medicine; Visit Provider Internal Medicine
DX: U07.1 COVID-19 (principal); R05.9 Cough, unspecified
CPT/HCPCS: 36415; 71046; 85025

== ENCOUNTER 2024-06-08 15:10 | Emergency (ER) | payer MEDICARE, SELFPAY ==
[2024-06-08 15:10] VITALS: BP 186/109; PULSE 79; RESP 18; TEMP 36.9; O2SAT 100
[2024-06-08 15:31] LABS: Add Urine Microscopic? NO; Appearance Urine Clear (Clear); Bilirubin Urine Negative (Negative); Blood Urine Negative (Negative); Color Urine Light Yellow (Yellow); Glucose Urine UA Negative (Negative); Ketones Urine Negative (Negative); Leukocyte Esterase Ur Negative LEU/UL (Negative); Nitrate Urine Negative (Negative); Protein Urine Negative (Negative); Specific Grav Ur 1.025 (1.010-1.020); Urobilinogen Urine 0.2 mg/dL (0.2-1.0)
--- NOTE | 2024-06-08 16:00 | ED.MALEGU ---
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 Onset (ago): hour(s) Duration: now resolved Related Data Home Medications ?Medication ?Instructions ?Recorded ?Confirmed ?Last Taken ?Type lisinopril 40 mg tablet 40 mg PO DAILY 01/12/22 02/17/23 Unknown History tamsulosin 0.4 mg capsule 0.4 mg PO DAILY 01/12/22 02/17/23 Unknown History verapamil 240 mg tablet,extended 240 mg PO BID 01/12/22 02/17/23 Unknown History release aspirin 81 mg tablet 81 mg PO DAILY 01/06/23 02/17/23 Unknown History Allergies Allergy/AdvReac Type Severity Reaction Status Date / Time No Known Allergies Allergy Verified 02/17/23 10:59 Review of Systems Review of Systems: All systems reviewed & are unremarkable except as noted in HPI and below PMFSH Past Medical History Medical History Cancer Essential hypertension BPH (benign prostatic hyperplasia) Social History Social History Smoking packs per day: 0.5 Smoking cigarettes per day: 10.0 Years smoked: 3 Smoking pack-years: 1.50 Smoking status: Former smoker Tobacco type: cigarettes Smoking end date: 10/11/1963 Alcohol intake: current Substance use: never Lack of Transportation: No Lack of Food: Never True Current Housing: I Have Housing Concerned About Future Housing: No Difficulty Paying Gas/Electric Bills: No Difficulty Paying for Meds: No Currently Unemployed: No Education: High School Diploma/GED Difficulty w/ Childcare or Family Care: No Living arrangements: with family Additional living arrangements comments: Spiritual care concerns: No Exam Const: General: healthy appearing and no acute distress Nutritional Appearance: well nourished Limitations: no limitations Chest: Chest palpation & inspection: normal inspection of the chest Resp: Effort & Inspection: normal respiratory effort Auscultation: clear to auscultation bilaterally Cardio: Rate: regular rate Rhythm: regular rhythm GI: GI Palp: Yes Soft to palpation Auscultation: normal bowel sounds : General: Yes bladder normal to palpation Urinary Catheter: Urinary Catheter: patent and draining Back/Spine/Pelvis: Back: no CVA tenderness Skin: General skin exam: normal color Rashes: no rashes Course Course Emergency Course: Patient had CT scan abdomen pelvis and right hip which showed no acute abnormalities, the right hip shows some mild osteoarthritis, patient's blood pressure elevated 186/109 but has not taken his nighttime medications, advised to take his blood pressure medication when he gets home and to follow with his primary care physician. Urinalysis was unremarkable. Vital Signs Vital signs: Vital Signs Temperature 36.9 C 06/08/24 15:10 Pulse Rate 79 06/08/24 15:10 Respiratory Rate 18 06/08/24 15:10 Blood Pressure 186/109 H 06/08/24 15:10 Pulse Oximetry 100 06/08/24 15:10 Oxygen Delivery Room Air 06/08/24 15:10 Temperature 36.9 C 06/08/24 15:10 Pulse Rate 79 06/08/24 15:10 Respiratory Rate 18 06/08/24 15:10 Blood Pressure 186/109 H 06/08/24 15:10 Pulse Oximetry 100 06/08/24 15:10 Oxygen Delivery Room Air 06/08/24 15:10 MDM - Male Genitourinary Lab Data Labs: Lab Results 06/08/24 Range/Units 15:22 Urine Color Light yellow (Yellow) Urine Appearance Clear (Clear) Urine pH 6.0 (5.0-8.0) Ur Specific [place] 1.025 H (1.010-1.020) Urine Protein Negative (Negative) Urine Glucose (UA) Negative (Negative) Urine Ketones Negative (Negative) Ur Blood (Man) Negative (Negative) Urine Nitrate Negative (Negative) Urine Bilirubin Negative (Negative) Urine Urobilinogen 0.2 (0.2-1.0) mg/dL Leukocyte Esterase Rfl Negative (Negative) CURRY/UL Critical Care Time Critical Care Time Critical Care Time: No Discharge Plan Discharge Clinical Impression: Hip osteoarthritis Qualifiers: Osteoarthritis type: primary Laterality: right Qualified Code(s): M16.11 - Unilateral primary osteoarthritis, right hip Patient Disposition: Home, Self-Care Condition: Stable Instructions: Antibiotic Form, Osteoarthritis (ED) Additional Instructions: advised patient to take Tylenol as needed for pain, and take medication for his blood pressure when he gets home. And follow-up with primary care physician within the next 3 to 4 days for further evaluation and treatment. Patient Language: Icelandic Prescriptions: No Action tamsulosin 0.4 mg capsule 0.4 mg PO DAILY verapamil 240 mg tablet extended release 240 mg PO BID lisinopril 40 mg tablet 40 mg PO DAILY aspirin 81 mg Tablet 81 mg PO DAILY Follow-up/Referrals: Jeanmarie Romero MD [Primary Care Provider] - Time of Disposition: 16:04
[2024-06-08 16:19] VITALS: BP 159/91; PULSE 72; RESP 20; TEMP 36.9; O2SAT 94
== END 2024-06-08 16:19 | disposition home or self-care (01) ==
PROVIDERS: Emergency Provider Emergency Medicine; PCP Internal Medicine
DX: M16.11 Unilateral primary osteoarthritis, right hip (principal); I10 Essential (primary) hypertension; Z87.891 Personal history of nicotine dependence
CPT/HCPCS: 73700; 74176; 81003; 99284

== ENCOUNTER 2024-06-13 13:40 | Outpatient (CLI) | payer MEDICARE, SELFPAY ==
--- NOTE | ~2024-06-13 | US_ITS ---
EXAMINATION: US venous doppler [facility] DATE: 06/13/2024 14:27 INDICATION: Lower limb pain and swelling TECHNIQUE: Grayscale ultrasound images without and with compression and Doppler ultrasound images of the left lower extremity veins were obtained. COMPARISON: None. FINDINGS: The visualized portions of left common femoral vein, profunda (deep) femoral vein, femoral vein, popl iteal vein, peroneal veins, posterior tibial veins, gastrocnemius vein and greater saphenous vein out flow are patent. IMPRESSION: 1. No deep venous thrombosis in the left lower limb. Reviewed, dictated and finalized at location B. [facility]
[2024-06-13 14:40] LABS: Hematocrit 35.2 % (37.0-46.0); Hemoglobin 11.8 g/dL (12.4-15.3); Mean Corpuscular HGB Conc 33.5 g/dL (32-36); Mean Corpuscular Hemoglobin 33.5 pg (27.0-31.0); Mean Platelet Volume 9.8 fl (8.7-11.0); Platelet Count Result 259 K/mm3 (150-420); Red Blood Count 3.52 M/mm3 (4.70-6.10); Red Cell Distribution Width 13.1 % (11.6-14.4)
[2024-06-13 15:05] LABS: Alanine Aminotransferase 52 U/L (16-63); Alkaline Phosphatase 96 U/L (46-116); Anion Gap 9 mmol/L (4-12); Aspartate Amino Transferase 31 U/L (15-37); Bilirubin,Total 0.8 mg/dL (0.00-1.00); Blood Urea Nitrogen 20 mg/dL (7-18); Calcium 8.8 mg/dL (8.5-10.1); Carbon Dioxide 29 mmol/L (21-32); Chloride 102 mmol/L (98-108); Estimated Glomerular Filt Rate 56; Glucose 107 mg/dL (70-99); Osmolality Calculated 292 mOsm/kg (285-295); Potassium 3.2 mmol/L (3.5-5.1); Sodium 140 mmol/L (136-145); Total Protein 7.2 g/dL (6.4-8.2); Uric Acid 4.8 mg/dL (3.5-7.2)
[2024-06-13 15:11] LABS: CRP > 25.0 mg/dL (0.0-0.9)
--- OUTSIDE RECORDS SUMMARY | 2024-06-13 15:46 | XMS_ITS | Clinical Summary ---
Author Organization [facility] Main [place] Address [address] [place] [address] Care Team Providers Care Smocking Machine Operator Name Role Phone Jeanmarie Romero MD Primary Care Provider + [phone] Allergies No known active allergies Medications verapamil ER (VERELAN) 240 mg 24 hr capsule Take 240 mg by mouth 2 (two) times a day. Active lisinopril (PRINIVIL,ZESTRI L) 40 mg tabletIndication s:hypertension Take 40 mg by mouth nightly. Active qdfix-q-nsgylmrt idase 150 unit tablet Take 1 tablet by mouth every morning. Active aspirin 81 mg tablet Take 81 mg by mouth daily. Active tamsulosin (FLOMAX) 0.4 mg extended release capsuleIndicatio ns:Benign Prostatic Hyperplasia 0.4 mg daily. Acti ve ferrous sulfate 325 mg (65 mg of elemental iron) tabletIndication s:Iron Deficiency Anemia Take 65 mg of elemental iron by mouth daily with breakfast. Active acetaminophen (TYLENOL) 325 mg tablet Take 650 mg by mouth every 6 (six) hours as needed for pain or headaches. 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 Perforation of right tympanic membrane 0 Acute otitis media of right ear with perforated tympanic membrane 08/28/2019 Prostate disease Surgical History Surgery Date Site/Laterality Comments TOTAL SHOULDER REPLACEMENT CRYOABLATION RENAL LEFT 05/20/2018 Left CATARACT EXTRACTION LITHOTRIPSY Medical History Medical History Date Comments Hypertension Prostate disease Renal mass Status post radiation therapy cu rrently receiving for prostate cancer Cancer (CMS/HCC) (HCC) prostate; last XRT 05/19/18 BPH (benign prostatic hyperplasia) Hyperlipemia Chronic serous otitis media Family History Medical History Relation Name Comments Anesthesia problems Neg Hx Social History Tobacco Use Types Packs/Day Years Used Date Smoking Tobacco: Former Cigarettes 0.5 4 1 961 - 1965 Smokeless Tobacco: Never Alcohol Use Standard Drinks/Week Comments Yes 0 (1 standard drink = 0.6 oz pur e alcohol) rare Sex and Gender Information Value Date Recorded Sex Assigned at Not on file Legal Sex Male 8:00 AM TAMALE MACHINE FEEDER Gender Identity Not on file Sexual Orientation Not on file Obstetrics History Last Filed Vital Signs Vital Sign Reading Time Taken Comments Blood Pressure 109/64 05/21/2018 6:02 AM TAMALE MACHINE FEEDER Pulse 53 05/21/2018 6:02 AM TAMALE MACHINE FEEDER Temperature 36.2 C (97.2 F) 05/21/2020 1:27 PM TAMALE MACHINE FEEDER Respiratory Rate 18 05/21/2018 6:02 AM TAMALE MACHINE FEEDER Oxygen Saturation 93% 05/21/2018 6:02 AM TAMALE MACHINE FEEDER Inhaled Oxygen Concentration - - Weight 70.3 kg (155 lb) 05/21/2020 1:27 PM TAMALE MACHINE FEEDER Height 165.1 cm (5' 5 ) 05/21/2020 1:27 PM TAMALE MACHINE FEEDER Body Mass Index 25.79 05/21/2020 1:27 PM TAMALE MACHINE FEEDER Plan of Treatment Not on file Medical Devices Implanted Type Area Hip Hop Artist Device Identifier Shelf Expiration Date Model / Serial / Lot Hardware Left: Shoulder Insurance [employer] Advance Directives For more information, please contact: [phone] * Full Code (Latest Code Status on File) Date Activated Date Inactivated Comments 05/20/2018 10:16 AM 05/21/2018 5:22 PM Care Teams Smocking Machine Operator Relationship Specialty Start Date End Date Jeanmarie Romero MD [address] [place], [place] [id number] PCP - General Internal Medicine 08/15/19
--- OUTSIDE RECORDS SUMMARY | 2024-06-13 15:46 | XMS_ITS | Referral Summary ---
Author Organization [facility] Main [place] Address [address] [place] [address] Care Team Providers Care Events Associate Name Role Phone Jeanmarie Romero MD Primary Care Provider + [phone] Allergies No known active allergies Medications verapamil ER (VERELAN) 240 mg 24 hr capsule Take 240 mg by mouth 2 (two) times a day. Active lisinopril (PRINIVIL,ZESTRI L) 40 mg tabletIndication s:hypertension Take 40 mg by mouth nightly. Active tvonm-l-vetfkjnk idase 150 unit tablet Take 1 tablet [...] with perforated tympanic membrane 08/28/2019 Prostate disease Social History Tobacco Use Types Packs/Day Years Used Date Smoking Tobacco: Former Cigarettes 0.5 4 1 961 - 1964 Smokeless Tobacco: Never Alcohol Use Standard Drinks/Week Comments Yes 0 (1 standard drink = 0.6 oz pur e alcohol) rare Sex and Gender Information Value Date Recorded Sex Assigned at Not on file Legal Sex Male 8:00 AM BOARD OF EDUCATION SECRETARY Gender Identity Not on file Sexual Orientation Not on file Last Filed Vital Signs Vital Sign Reading Time Taken Comments Blood Pressure 109/64 05/21/2018 6:02 AM BOARD OF EDUCATION SECRETARY Pulse 53 05/21/2018 6:02 AM BOARD OF EDUCATION SECRETARY Temperature 36.2 C (97.2 F) 05/21/2020 1:27 PM BOARD OF EDUCATION SECRETARY Respiratory Rate 18 05/21/2018 6:02 AM BOARD OF EDUCATION SECRETARY Oxygen Saturation 93% 05/21/2018 6:02 AM BOARD OF EDUCATION SECRETARY Inhaled Oxygen Concentration - - Weight 70.3 kg (155 lb) 05/21/2020 1:27 PM BOARD OF EDUCATION SECRETARY Height 165.1 cm (5' 5 ) 05/21/2020 1:27 PM BOARD OF EDUCATION SECRETARY Body Mass Index 25.79 05/21/2020 1:27 PM BOARD OF EDUCATION SECRETARY Plan of Treatment Not on file Medical Devices Implanted Type Area Tool And Die Assembler Device Identifier Shelf Expiration Date Model / Serial / Lot Hardware Left: Shoulder Insurance [employer] Advance Directives For more information, please contact: [phone] * Full Code (Latest Code Status on File) Date Activated Date Inactivated Comments 05/20/2018 10:16 AM 05/21/2018 5:22 PM Care Teams Events Associate Relationship Specialty Start Date End Date Jeanmarie Romero MD [address] [place] [address] PCP - General Internal Medicine 08/15/19
--- OUTSIDE RECORDS SUMMARY | 2024-06-13 15:46 | XMS_ITS | Clinical Summary ---
Author Organization [facility] Address [facility] [place] [address] Care Team Providers Care Smelting Engineer Name Role Phone Unavailable Primary Care Provider Unavailabl e Social History Tobacco Use Types Packs/Day Years Used Date Smoking Tobacco: Smoker, Current Status Unknown Sex and Gender Information Value Date Recorded Sex Assigned at Not on file Legal Sex Male 9:18 PM CDT Gender Identity Not on file Sexual Orientation Not on file Last Filed Vital Signs Vital Sign Reading Time Taken Comments Blood Pressure 146/92 09/08/2005 8:08 PM CDT Pulse 96 09/08/2005 8:08 PM CDT Temperature - - Respiratory Rate - - Oxygen Saturation - - Inhaled Oxygen Concentration - - Weight 71.2 kg (157 lb) 09/08/2005 8:08 PM CDT Height 170.2 cm (5' 7 ) 09/08/2005 8:08 PM CDT Body Mass Index 24.59 09/08/2005 8:08 PM CDT Plan of Treatment Health Maintenance Due Date Last Done Comments DTaP, Tdap and Td Vaccines ( 1 - Tdap) 1956 Zoster Vaccines (1 of 2) 11/28/1987 Pneumococcal Vaccine: 65+ Ye ars (1 of 1 - PCV) 2002 RSV Immunization or 60+ Years (1 - 1-dose 75+ series) 2012 COVID-19 Vaccine ( - 2023-2 5 season) 2023 Influenza Adult (#1) 2024 Meningococcal B Vaccine Aged Out No l onger eligible based on patient's age to complete this topic Meningococcal Vaccine Aged Out No emi tim eligible based on patient's age to complete this topic RSV Immunizations Under 20 Months Aged Out No longer eligible based on patient's age to complete this topic
[2024-06-13 16:00] LABS: Erythrocyte Sedimentation Rate 51 mm/hr (0-30)
== END 2024-06-13 13:41 | disposition home or self-care (01) ==
PROVIDERS: PCP Internal Medicine; Visit Provider Internal Medicine
DX: M79.89 Other specified soft tissue disorders (principal); M10.9 Gout, unspecified
CPT/HCPCS: 36415; 80053; 84550; 85027; 85652; 86140; 93971

== ENCOUNTER 2024-09-11 12:50 | Outpatient (CLI) | payer MEDICARE, SELFPAY ==
--- OUTSIDE RECORDS SUMMARY | 2024-09-11 12:57 | XMS_ITS | Referral Summary ---
Author Organization [facility] Main [place] Address [address] [place] [address] Care Team Providers Care Plastics Fabricator Name Role Phone Jeanmarie Romero MD Primary Care Provider + [phone] Allergies No known active allergies Medications verapamil ER (VERELAN) 240 mg 24 hr capsule Take 240 mg by mouth 2 (two) times a day. Active lisinopril (PRINIVIL,ZESTRI L) 40 mg tabletIndication s:hypertension Take 40 mg by mouth nightly. Active jehjc-g-egzyzjmk idase 150 unit tablet Take 1 tablet [...] on file Legal Sex Male 8:00 AM CORE WINDER Gender Identity Not on file Sexual Orientation Not on file Last Filed Vital Signs Vital Sign Reading Time Taken Comments Blood Pressure 109/64 05/21/2018 6:02 AM CORE WINDER Pulse 53 05/21/2018 6:02 AM CORE WINDER Temperature 36.2 C (97.2 F) 05/21/2020 1:27 PM CORE WINDER Respiratory Rate 18 05/21/2018 6:02 AM CORE WINDER Oxygen Saturation 93% 05/21/2018 6:02 AM CORE WINDER Inhaled Oxygen Concentration - - Weight 70.3 kg (155 lb) 05/21/2020 1:27 PM CORE WINDER Height 165.1 cm (5' 5) 05/21/2020 1:27 PM CORE WINDER Body Mass Index 25.79 05/21/2020 1:27 PM CORE WINDER Plan of Treatment Not on file Medical Devices Implanted Type Area Pipelines Supervisor Device Identifier Shelf Expiration Date Model / Serial / Lot Hardware Left: Shoulder Insurance MEDICARE ADVANTAGE Advance Directives For more information, please contact: [phone] * Full Code (Latest Code Status on File) Date Activated Date Inactivated Comments 05/20/2018 10:16 AM 05/21/2018 5:22 PM Care Teams Plastics Fabricator Relationship Specialty Start Date End Date Jeanmarie Romero MD [address] [place], [place] [phone] PCP - General Internal Medicine 08/15/19
--- OUTSIDE RECORDS SUMMARY | 2024-09-11 12:57 | XMS_ITS | Clinical Summary ---
Author Organization [facility] Main [place] Address [address] [place] [address] Care Team Providers Care Sole Trimmer Name Role Phone Jeanmarie Romero MD Primary Care Provider + [phone] Allergies No known active allergies Medications verapamil ER (VERELAN) 240 mg 24 hr capsule Take 240 mg by mouth 2 (two) times a day. Active lisinopril (PRINIVIL,ZESTRI L) 40 mg tabletIndication s:hypertension Take 40 mg by mouth nightly. Active lpevu-a-fwokregf idase 150 unit tablet Take 1 tablet [...] cu rrently receiving for prostate cancer Cancer (HCC) prostate; last X RT 05/19/18 BPH (benign prostatic hyperplasia) Hyperlipemia Chronic [...] on file Legal Sex Male 8:00 AM SPONGE FISHERMAN Gender Identity Not on file Sexual Orientation Not on file Obstetrics History Last Filed Vital Signs Vital Sign Reading Time Taken Comments Blood Pressure 109/64 05/21/2018 6:02 AM SPONGE FISHERMAN Pulse 53 05/21/2018 6:02 AM SPONGE FISHERMAN Temperature 36.2 C (97.2 F) 05/21/2020 1:27 PM SPONGE FISHERMAN Respiratory Rate 18 05/21/2018 6:02 AM SPONGE FISHERMAN Oxygen Saturation 93% 05/21/2018 6:02 AM SPONGE FISHERMAN Inhaled Oxygen Concentration - - Weight 70.3 kg (155 lb) 05/21/2020 1:27 PM SPONGE FISHERMAN Height 165.1 cm (5' 5) 05/21/2020 1:27 PM SPONGE FISHERMAN Body Mass Index 25.79 05/21/2020 1:27 PM SPONGE FISHERMAN Plan of Treatment Not on file Medical Devices Implanted Type Area Polisher Implant Device Identifier Shelf Expiration Date Model / Serial / Lot Hardware Left: Shoulder Insurance [facility] MEDICARE ADVANTAGE Advance Directives For more information, please contact: [phone] * Full Code (Latest Code Status on File) Date Activated Date Inactivated Comments 05/20/2018 10:16 AM 05/21/2018 5:22 PM Care Teams Sole Trimmer Relationship Specialty Start Date End Date Jeanmarie Romero MD [address] [place], [place] [id number] PCP - General Internal Medicine 08/15/19
== END 2024-09-11 12:51 | disposition home or self-care (01) ==
LOC: ANHAUDASC 12:50
PROVIDERS: PCP Internal Medicine; Visit Provider Internal Medicine
DX: H90.42 Sensorineural hearing loss, unilateral, left ear, with unrestricted hearing on the contralateral side (principal); H90.71 Mixed conductive and sensorineural hearing loss, unilateral, right ear, with unrestricted hearing on the contralateral side
CPT/HCPCS: 92557; 92567

== ENCOUNTER 2024-10-20 15:00 | Outpatient (RCR) | payer SELFPAY | END 2025-01-04 23:59 | disposition home or self-care (01) | LOC: ANHAUDASC 15:00 | PROVIDERS: PCP Internal Medicine | DX: Z46.1 Encounter for fitting and adjustment of hearing aid (principal) | CPT/HCPCS: 99199; V5257 ==

== ENCOUNTER 2024-12-22 20:14 | Emergency (ER) | payer MEDICARE, SELFPAY ==
--- NOTE | ~2024-12-22 | XR_ITS ---
XR elbow RT min 3V 12/22/2024 20:36 Indication: Right elbow pain after fall Procedure: 4 views right elbow Comparison: No prior studies for comparison. Findings: There is a nondisplaced fracture of the olecranon process with intra- articular extension. Large joint effusion. Osteopenia. Impression: 1: Nondisplaced olecranon fracture with large joint effusion. Reviewed, dictated and finalized at location O. Impression: 1: Nondisplaced olecranon fracture with large joint effusion.
--- OUTSIDE RECORDS SUMMARY | 2024-12-22 20:16 | XMS_ITS | Clinical Summary ---
Author Organization [facility] Address Count includes the [facility] [place] [address] Care Team Providers Care Swatcher Name Role Phone Unavailable Primary Care Provider [...] 8:08 PM CDT Height 170.2 cm (5' 7) 09/08/2005 8:08 PM CDT Body Mass Index 24.59 09/08/2005 8:08 PM CDT Plan of Treatment Health Maintenance Due Date Last Done Comments DTaP, Tdap and Td Vaccines ( 1 - Tdap) 1954 Pneumococcal Vaccine: 50+ Ye ars (1 of 1 - PCV) 11/28/1987 Zoster Vaccines (1 of 2) 11/28/1987 RSV Immunization or 60+ Years (1 - 1-dose 75+ series) 2012 COVID-19 Vaccine ( - 2023-2 5 season) 2024 Meningococcal B Vaccine Aged Out No l onger eligible based on patient's age to complete this topic Meningococcal Vaccine Aged Out No emi tim eligible based on patient's age to complete this topic RSV Immunizations Under 20 Months Aged Out No longer eligible based on patient's age to complete this topic
--- OUTSIDE RECORDS SUMMARY | 2024-12-22 20:16 | XMS_ITS | Clinical Summary ---
Author Organization [facility] Main [place] Address [address] [place] [address] Care Team Providers Care River Boat Captain Name Role Phone Jeanmarie Romero MD Primary Care Provider + [phone] Allergies No known active allergies Medications verapamil ER (VERELAN) 240 mg 24 hr capsule Take 240 mg by mouth 2 (two) times a day. Active lisinopril (PRINIVIL,ZESTRI L) 40 mg tabletIndication s:hypertension Take 40 mg by mouth nightly. Active mkyct-v-cmfcbwyl idase 150 unit tablet Take 1 tablet [...] on file Legal Sex Male 8:00 AM UNIT ASSISTANT Gender Identity Not on file Sexual Orientation Not on file Obstetrics History Last Filed Vital Signs Vital Sign Reading Time Taken Comments Blood Pressure 109/64 05/21/2018 6:02 AM UNIT ASSISTANT Pulse 53 05/21/2018 6:02 AM UNIT ASSISTANT Temperature 36.2 C (97.2 F) 05/21/2020 1:27 PM UNIT ASSISTANT Respiratory Rate 18 05/21/2018 6:02 AM UNIT ASSISTANT Oxygen Saturation 93% 05/21/2018 6:02 AM UNIT ASSISTANT Inhaled Oxygen Concentration - - Weight 70.3 kg (155 lb) 05/21/2020 1:27 PM UNIT ASSISTANT Height 165.1 cm (5' 5) 05/21/2020 1:27 PM UNIT ASSISTANT Body Mass Index 25.79 05/21/2020 1:27 PM UNIT ASSISTANT Plan of Treatment Not on file Medical Devices Implanted Type Area Director Building Device Identifier Shelf Expiration Date Model / Serial / Lot Hardware Left: Shoulder Insurance [facility] MEDICARE ADVANTAGE Advance Directives For more information, please contact: [phone] * Full Code (Latest Code Status on File) Date Activated Date Inactivated Comments 05/20/2018 10:16 AM 05/21/2018 5:22 PM Care Teams River Boat Captain Relationship Specialty Start Date End Date Jeanmarie Romero MD [address] [place], [place] [id number] PCP - General Internal Medicine 08/15/19
[2024-12-22 20:18] VITALS: BP 177/110; PULSE 92; RESP 18; TEMP 36.5; O2SAT 97
--- NOTE | 2024-12-22 20:41 | ED.UPPEXIN ---
HPI - Extremity Injury (Upper) General Chief Complaint: Extremity Injury, Upper Stated Complaint: arm pain Time Seen by Provider: 12/22/24 20:15 Source: patient Mode of arrival: ambulatory Limitations: no limitations History of Present Illness HPI narrative: 89-year-old with a history of hypertension, BPH here with the complaints of right elbow pain sustained a fall this afternoon . He states that he lost his balance while trying to get into his camper , usually walks with a cane ,had bags in boyth the arms , Denies any head injury or neck pain. Related Data Home Medications ?Medication ?Instructions ?Recorded ?Confirmed ?Last Taken ?Type lisinopril 40 mg tablet 40 mg PO DAILY 01/12/22 02/17/23 Unknown History tamsulosin 0.4 mg capsule 0.4 mg PO DAILY 01/12/22 02/17/23 Unknown History verapamil 240 mg tablet,extended 240 mg PO BID 01/12/22 02/17/23 Unknown History release aspirin 81 mg tablet 81 mg PO DAILY 01/06/23 02/17/23 Unknown History Allergies Allergy/AdvReac Type Severity Reaction Status Date / Time No Known Allergies Allergy Verified 12/22/24 20:18 Review of Systems Review of Systems: All systems reviewed & are unremarkable except as noted in HPI and below ROS unobtainable: Yes unobtainable due to medical condition Constitutional: Constitutional: Reports no additional constitutional complaints Eyes: Eyes: Reports no additional eye complaints ENT: Reports system reviewed and no additional complaints, except as documented Cardiovascular: Cardiovascular: Reports no additional cardiovascular complaints Respiratory: Respiratory: Reports no additional respiratory complaints Gastrointestinal: Gastrointestinal: Reports no additional gastrointestinal complaints Musculoskeletal: Musculoskeletal: Reports as per HPI Integumentary/Breasts: Skin/Breast: Reports system reviewed and no additional complaints, except as docu [facility] Past Medical History Medical History Cancer Essential hypertension BPH (benign prostatic hyperplasia) Social History Social History Smoking packs per day: 0.5 Smoking cigarettes per day: 10.0 Years smoked: 3 Smoking pack-years: 1.50 Smoking status: Former smoker Tobacco type: cigarettes Smoking end date: 10/11/1963 Alcohol intake: current Substance use: never Lack of Transportation: No Lack of Food: Never True Current Housing: I Have Housing Concerned About Future Housing: No Difficulty Paying Gas/Electric Bills: No Difficulty Paying for Meds: No Currently Unemployed: No Education: High School Diploma/GED Difficulty w/ Childcare or Family Care: No Living arrangements: with family Additional living arrangements comments: Spiritual care concerns: No Exam Narrative: GENERAL: Well-appearing, well-nourished, and in no acute distress. HEAD: Normocephalic, atraumatic. EYES: PERRLA and EOMI. ENT: Nares clear, no rhinorrhea or epistaxis. Mucous membranes moist. NECK: Supple. CHEST: Clear to auscultation. No respiratory distress. HEART: Regular rate and rhythm. No murmur heard. Normal peripheral pulses. EXTREMITIES: Normal range of motion. No edema. SKIN: Warm, dry, no rash. NEURO: No focal deficits. Alert and oriented x3. PSYCH: Normal mood and affect. Course Vital Signs Vital signs: Vital Signs Temperature 36.5 C 12/22/24 20:18 Pulse Rate 92 12/22/24 20:18 Respiratory Rate 18 12/22/24 20:18 Blood Pressure 177/110 H 12/22/24 20:18 Pulse Oximetry 97 12/22/24 20:18 Oxygen Delivery Room Air 12/22/24 20:18 Temperature 36.5 C 12/22/24 20:18 Pulse Rate 92 12/22/24 20:18 Respiratory Rate 18 12/22/24 20:18 Blood Pressure 177/110 H 12/22/24 20:18 Pulse Oximetry 97 12/22/24 20:18 Oxygen Delivery Room Air 12/22/24 20:18 MDM - Extremity Injury (Upper) MDM Narrative Medical decision making narrative: notified patient about x-ray findings. Will apply a long-arm splint advised him to follow with Ortho. Differential Diagnosis Differential diagnosis: Likely other ( fracture elbow) Medical Records Attestation: I reviewed the patient's medical records. Imaging Data Radiologist's impression: ITS Impressions Elbow X-Ray 12/22/24 20:40 Impression: 1: Nondisplaced olecranon fracture with large joint effusion. Discharge Plan Discharge Clinical Impression: Fracture of elbow, condyle, right, closed Patient Disposition: Home Condition: Stable Additional Instructions: TAKE PAIN Medications as prescribed , follow with Orthopedic doctor on Wednesday Patient Language: [place] Prescriptions: No Action tamsulosin 0.4 mg capsule 0.4 mg PO DAILY verapamil 240 mg tablet extended release 240 mg PO BID lisinopril 40 mg tablet 40 mg PO DAILY aspirin 81 mg Tablet 81 mg PO DAILY Follow-up/Referrals: Jeanmarie Romero MD [Primary Care Provider, Internal Medicine] Carson Burks MD [Physician, Orthopedics] Time of Disposition: 21:32
--- NOTE | 2024-12-22 21:56 | PC.NURSE ---
ERP aware of pt's vital signs. No new orders.
[2024-12-22 22:00] VITALS: BP 136/121; PULSE 75; RESP 17; O2SAT 97
== END 2024-12-22 22:00 | disposition home or self-care (01) ==
PROVIDERS: Emergency Provider Family Medicine; PCP Internal Medicine
DX: S42.401A Unspecified fracture of lower end of right humerus, initial encounter for closed fracture (principal); I10 Essential (primary) hypertension; Z87.891 Personal history of nicotine dependence; W19.XXXA Unspecified fall, initial encounter
CPT/HCPCS: 29105; 73080; 99284; A4565

== ENCOUNTER 2025-02-19 15:17 | Outpatient (CLI) | payer MEDICARE, SELFPAY ==
--- NOTE | ~2025-02-19 | XR_ITS ---
EXAMINATION: XR chest 2V DATE: 02/19/2025 15:46 INDICATION: Cough TECHNIQUE: Frontal and lateral views of the chest were obtained. COMPARISON: May 14, 2024 FINDINGS: The lungs are clear. Heart shadow stable. Tortuous thoracic aorta unchanged in appearance. Partially visualized left shoulder arthroplasty hardware. Bones and upper abdomen appear stable. IMPRESSION: 1. Stable chest x-ray with no focal acute process. Reviewed, dictated and finalized at location A. MOTIVE EXHAUST EMISSIONS TECHNICIAN
--- OUTSIDE RECORDS SUMMARY | 2025-02-19 15:20 | XMS_ITS | Clinical Summary ---
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
--- OUTSIDE RECORDS SUMMARY | 2025-02-19 15:20 | XMS_ITS | Clinical Summary ---
Author Organization [facility] [address] [place] [address] Care Team Providers Care Precipitate Washer Name Role Phone Jeanmarie Romero MD Primary Care Provider + [phone] Allergies No known active allergies Medications verapamil ER (VERELAN) 240 mg 24 hr capsule Take 240 mg by mouth 2 (two) times a day. Active lisinopril (PRINIVIL,ZESTRI L) 40 mg tabletIndication s:hypertension Take 40 mg by mouth nightly. 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 Gender Identity Not on file Sexual Orientation Not on file Last Filed Vital Signs Vital Sign Reading Time Taken Comments Blood Pressure 109/64 05/21/2018 6:02 AM OIL FIELD TECHNICIAN Pulse 53 05/21/2018 6:02 AM OIL FIELD TECHNICIAN Temperature 36.2 C (97.2 F) 05/21/2020 1:27 PM OIL FIELD TECHNICIAN Respiratory Rate 18 05/21/2018 6:02 AM OIL FIELD TECHNICIAN Oxygen Saturation 93% 05/21/2018 6:02 AM OIL FIELD TECHNICIAN Inhaled Oxygen Concentration - - Weight 70.3 kg (155 lb) 05/21/2020 1:27 PM OIL FIELD TECHNICIAN Height 165.1 cm (5' 5) 05/21/2020 1:27 PM OIL FIELD TECHNICIAN Body Mass Index 25.79 05/21/2020 1:27 PM OIL FIELD TECHNICIAN Plan of Treatment Not on file Medical Devices Implanted Type Area Motorcycle Delivery Driver Device Identifier Shelf Expiration Date Model / Serial / Lot Hardware Left: Shoulder Insurance [facility] MEDIC[facility]AGE Advance Directives For more information, please contact: [phone] * Full Code (Latest Code Status on File) Date Activated Date Inactivated Comments 05/20/2018 10:16 AM 05/21/2018 5:22 PM Care Teams Precipitate Washer Relationship Specialty Start Date End Date Jeanmarie Romero MD [address] [place], [place] [id number] PCP - General Internal Medicine 08/15/19
[2025-02-19 15:38] LABS: Hematocrit 40.1 % (37.0-46.0); Hemoglobin 13.6 g/dL (12.4-15.3); Mean Corpuscular HGB Conc 33.9 g/dL (32-36); Mean Corpuscular Hemoglobin 34.3 pg (27.0-31.0); Mean Corpuscular Volume 101.3 fL (78.0-102.0); Platelet Count Result 240 K/mm3 (150-420); Red Blood Count 3.96 M/mm3 (4.70-6.10); White Blood Count 4.2 K/mm3 (4.8-10.8)
[2025-02-19 15:55] LABS: Anion Gap 9 mmol/L (4-12); Blood Urea Nitrogen 28 mg/dL (9-20); Calcium 9.3 mg/dL (8.4-10.2); Carbon Dioxide 28 mmol/L (22-30); Chloride 108 mmol/L (98-107); Estimated Glomerular Filt Rate > 60; Glucose 105 mg/dL (65-110); Osmolality Calculated 305 mOsm/kg (285-295); Potassium 4.0 mmol/L (3.4-5.0); Sodium 145 mmol/L (137-145)
[2025-02-19 16:11] LABS: Strep Group A RT-PCR NOT DETECTED (Negative)
[2025-02-19 16:19] LABS: Influenza A QL RT-PCR Negative (Negative); Influenza B QL RT-PCR Negative (Negative); RSV RNA, RT-PCR Negative (Negative); SARS-CoV-2 RNA PCR Negative (Negative)
== END 2025-02-19 15:18 | disposition home or self-care (01) ==
LOC: CHSLAB 15:18
PROVIDERS: PCP Internal Medicine; Visit Provider Internal Medicine
DX: J06.9 Acute upper respiratory infection, unspecified (principal); R05.9 Cough, unspecified
CPT/HCPCS: 36415; 71046; 80048; 85027; 87637; 87651